=== PATIENT | female | born 1965 | race Caucasian/White ===

== ENCOUNTER 2020-05-18 09:29 | Outpatient (REF) | payer OTHER, SELFPAY ==
[2020-05-18 10:03] LABS: MANUAL DIFF FLAG NO
[2020-05-18 10:10] LABS: Basophils Absolute Auto 0.1 X10*3/uL (0.0-0.2); Basophils Percent Auto 1.1 % (0-2); Eosinophils Absolute Auto 0.1 X10*3/uL (0.0-0.4); Eosinophils Percent Auto 1.9 % (0-4); Hematocrit 45.2 % (37-47); Hemoglobin 14.2 g/dl (12.0-16.0); Imm Gran Abs Auto 0.01 X10*3/uL (0.00-0.03); Imm Gran Pct Auto 0.2 % (0.0-0.4); Lymphocytes Absolute Auto 1.5 X10*3/uL (1.2-4.9); Lymphocytes Percent Auto 23.6 % (20-40); Mean Corpuscular HGB Conc 31.4 g/dl (31.0-35.0); Mean Corpuscular Hemoglobin 29.2 pg (27.0-33.0); Mean Corpuscular Volume 92.8 fL (80-98); Monocytes Absolute Auto 0.3 X10*3/uL (0.1-1.2); Monocytes Percent Auto 5.1 % (2-11); Neutrophils Absolute Auto 4.4 X10*3/uL (2.0-8.3); Neutrophils Percent Auto 68.1 % (45-73); Platelet Count 326 X10*3/uL (160-400); Red Blood Count 4.87 X10*6/uL (4.20-5.50); Red Cell Distribution Width 12.6 % (11.0-16.0); White Blood Count 6.5 X10*3/uL (4.8-10.8)
[2020-05-18 10:38] LABS: Alanine Aminotransferase 16 U/L (0-31); Albumin Level 4.1 g/dL (3.5-5.0); Alkaline Phosphatase 99 U/L (39-117); Anion Gap 12 (12-20); Aspartate Amino Transferase 13 U/L (5-31); Bilirubin Total 0.3 mg/dL (0.0-1.0); Blood Urea Nitrogen 10 mg/dL (9-16); Calcium 9.3 mg/dL (8.4-10.2); Carbon Dioxide 29 mmol/L (22-29); Chloride 103 mmol/L (96-108); Cholesterol 218 mg/dL; Estimated Glomerular Filt Rate > 60; Glucose Fasting 97 mg/dL (60-99); HDL Cholesterol 62 mg/dL; LDL Cholesterol Calculated 125 mg/dl; Potassium 4.6 mmol/l (3.3-5.1); Sodium 139 mmol/L (135-145); Triglycerides 156 mg/dL
[2020-05-18 10:44] LABS: Glucose Urine UA NEG (NEG); Leukocyte Esterase Urine 2+ (NEG); Nitrite Urine NEG (NEG); Urine Blood NEG (NEG); Urine Ketones NEG (NEG); Urine Protein NEG (NEG-TRACE)
[2020-05-18 10:48] LABS: Appearance Urine CLEAR; Color Urine YELLOW
[2020-05-18 11:00] LABS: Thyroid Stimulating Hormone 2.87 uIU/mL (0.32-4.0); Vitamin D 25-OH Total 39.8 ng/mL (>30)
[2020-05-18 11:26] LABS: Amorphous Sediment Urine 1+ /LPF; Bacteria Urine 1+ /LPF; RBC Urine 0-2 /HPF (0); Squamous Epithelial Cell Urine 1+ /LPF
== END 2020-05-18 09:30 | disposition home or self-care (01) ==
LOC: HO.LAB 09:29
PROVIDERS: PCP Internal Medicine; Visit Provider Internal Medicine
DX: Z00.00 Encounter for general adult medical examination without abnormal findings (principal); E04.1 Nontoxic single thyroid nodule; E55.9 Vitamin D deficiency, unspecified; R31.1 Benign essential microscopic hematuria; R81 Glycosuria
CPT/HCPCS: 36415; 80053; 80061; 81001; 82306; 84443; 85025

== ENCOUNTER 2020-06-01 09:57 | Outpatient (REF) | payer OTHER, SELFPAY ==
--- NOTE | 2020-06-01 10:01 | US_ITS ---
EXAMINATION: US THYROID CLINICAL INFORMATION: Followup thyroid nodules. COMPARISON: Ultrasound thyroid 05/20/2019 TECHNIQUE: Linear transducer grayscale and color Doppler examination with attention to the region of the thyroid. FINDINGS: SIZE: Measurements of the thyroid lobes and nodules are given in sagittal, anteroposterior and transverse dimensions respectively. Right Thyroid Lobe: 5.2 x 2.1 x 2.3 cm, volume 13.1 mL. Previous: 5.1 x 2.0 x 2.3, volume 12.3 mL. Parenchyma: The gland echotexture is homogeneous. Thyroid vascularity is increased. Left Thyroid Lobe: 4.1 x 1.1 x 1.4 cm, volume 3.6 mL. Previous: 4.8 x 1.0 x 1.4, volume 3.5 mL. Parenchyma: The gland echotexture is homogeneous. Thyroid vascularity is normal. Isthmus: 0.3 cm in maximum AP dimension. Previous: 0.3 cm. Estimated total number of nodules greater than or equal to 1 cm: 1. Salon Coordinator nodules are described as follows: 1. Location: Right upper lobe. Size: 3.2 x 1.9 x 2.0 cm, volume 6.4 mL. Previous: 3.1 x 1.6 x 1.9 cm. Nodule characteristics: Composition: Solid (2). Echogenicity: Hypoechoic (2). Shape: Wider. Margins: Smooth (0). Echogenic Foci: None (0). ACR TI-RADS total points: 4 ACR TI-RADS category: 4 This nodule has been biopsied on 06/02/2019. 2. Location: Left lower pole. Size: 0.5 x 0.3 x 0.5 cm, volume 0.04 mL. Previous: 0.5 x 0.3 x 0.5 cm. Nodule characteristics: Composition: Solid (2). Echogenicity: Hypoechoic (2). Shape: Wider. Margins: Smooth (0). Echogenic Foci: None (0). ACR TI-RADS total points: 4 ACR TI-RADS category: 4 This appears to be a simple cyst. No additional nodules seen. NODES: No lymphadenopathy is seen in the tissue surrounding the thyroid gland. US/US thyroid IMPRESSION: Right midpole nodule is stable and has been biopsied previously in 2009. Small simple cyst lower pole left kidney. ACR TI-RADS RECOMMENDATIONS: Ultrasound-guided fine-needle aspiration, followup ultrasound, no further followup. * TR1 (0 point) and TR 2 (2 points): No FNA or followup. * TR3 (3 points): FNA if more than or equal to 2.5 cm in maximum dimension, followup in 1, 3 and 5 years if 1.5 to 2.4 cm in maximum dimension. * TR 4 (4-6 points): FNA if more than or equal to 1.5 cm in maximum dimension, followup in 1, 2, 3 and 5 years if 1 to 1.4 cm in maximum dimension. * TR 5 (more than or equal to 7 points): FNA if more than or equal to 1 cm in maximum dimension, followup every year for 5 years if 0.5 to 0.9 cm in maximum dimension. TR3, TR4 or TR5 nodules that are below the size threshold for followup receive no followup.
== END 2020-06-01 09:58 | disposition home or self-care (01) ==
LOC: HO.US 09:57
PROVIDERS: Visit Provider Internal Medicine
DX: E04.1 Nontoxic single thyroid nodule (principal)
CPT/HCPCS: 76536

== ENCOUNTER 2020-12-20 13:10 | Outpatient (REF) | payer OTHER, SELFPAY ==
[2020-12-20 13:53] LABS: Alanine Aminotransferase 17 U/L (0-31); Albumin Level 4.1 g/dL (3.5-5.0); Alkaline Phosphatase 101 U/L (39-117); Anion Gap 12 (12-20); Aspartate Amino Transferase 14 U/L (5-31); Bilirubin Total 0.5 mg/dL (0.0-1.0); Blood Urea Nitrogen 16 mg/dL (9-16); Calcium 9.6 mg/dL (8.4-10.2); Carbon Dioxide 28 mmol/L (22-29); Chloride 103 mmol/L (96-108); Estimated Glomerular Filt Rate > 60; Glucose Random 96 mg/dL (60-115); Sodium 138 mmol/L (135-145); Total Protein 7.3 g/dL (6.5-8.0)
[2020-12-20 14:16] LABS: Thyroid Stimulating Hormone 2.12 uIU/mL (0.32-4.0)
== END 2020-12-20 13:11 | disposition home or self-care (01) ==
LOC: HO.LNP 13:10
PROVIDERS: Visit Provider Internal Medicine
DX: R63.5 Abnormal weight gain (principal)
CPT/HCPCS: 80053; 84443

== ENCOUNTER 2021-01-12 08:23 | Outpatient (REF) | payer OTHER, SELFPAY ==
--- NOTE | ~2021-01-12 | US_ITS ---
EXAMINATION: US ABDOMEN COMPLETE CLINICAL INFORMATION: Abdominal protuberance. COMPARISON: CT abdomen and pelvis 04/28/2007. TECHNIQUE: Real-time imaging of the abdominal viscera. FINDINGS: PANCREAS: Normal. ABDOMINAL AORTA: The proximal, mid, and distal segments are normal in caliber. INFERIOR VENA CAVA: Visualized portions are normal. LIVER: There are multiple liver cysts. Some cysts appear complex with septations and mobile echogenic debris. Largest cysts measure 7.1 x 6.8 x 9 cm in the left lobe and 8.8 x 5.7 x 7.4 cm in the right lobe. Liver cysts appear increased in size and number compared to previous CT scan from 2006. The liver is normal in size. The liver contour is normal. Liver echotexture is slightly increased probably representing fatty infiltration. There is no intrahepatic biliary duct dilatation seen. GALLBLADDER: The gallbladder is physiologically distended. Multiple mobile gallstones are present. No evidence of gallbladder wall thickening or pericholecystic fluid. COMMON BILE DUCT: Normal in caliber measuring 0.4 cm in diameter. RIGHT KIDNEY: Normal No hydronephrosis. No renal calculi or focal parenchymal lesions. The kidney measures 11.5 cm in maximum dimension. LEFT KIDNEY: Normal No hydronephrosis. No renal calculi or focal parenchymal lesions. The kidney measures 11.2 cm in maximum dimension. SPLEEN: Normal. The spleen measures 9.1 cm in maximum dimension. FREE FLUID: None. US/US abdomen complete IMPRESSION: Multiple liver cysts. Some cysts appear complex. Largest cyst measures 7 x 7 x 9 cm in the left lobe and 9 x 6 x 7 cm in the right lobe. Cysts are new or increased from March [address] scan. Slightly echogenic liver probably representing fatty infiltration. Gallstones.
== END 2021-01-12 08:24 | disposition home or self-care (01) ==
LOC: HO.HMGCX 08:23
PROVIDERS: PCP Internal Medicine; Visit Provider Internal Medicine
DX: R18.8 Other ascites (principal)
CPT/HCPCS: 76700

== ENCOUNTER 2021-05-30 10:23 | Outpatient (REF) | payer OTHER, SELFPAY ==
[2021-05-30 10:27] LABS: MANUAL DIFF FLAG NO
[2021-05-30 10:39] LABS: Basophils Absolute Auto 0.1 X10*3/uL (0.0-0.2); Basophils Percent Auto 0.8 % (0-2); Eosinophils Absolute Auto 0.1 X10*3/uL (0.0-0.4); Eosinophils Percent Auto 1.7 % (0-4); Hematocrit 43.9 % (37.0-47.0); Hemoglobin 13.7 g/dl (12.0-16.0); Imm Gran Abs Auto 0.02 X10*3/uL (0.00-0.03); Imm Gran Pct Auto 0.2 % (0.0-0.4); Lymphocytes Absolute Auto 2.3 X10*3/uL (1.2-4.9); Lymphocytes Percent Auto 27.2 % (20-40); Mean Corpuscular HGB Conc 31.2 g/dl (31.0-35.0); Mean Corpuscular Hemoglobin 29.2 pg (27.0-33.0); Mean Corpuscular Volume 93.6 fL (80.0-98.0); Mean Platelet Volume 10.4 fL (9.4-12.3); Monocytes Absolute Auto 0.6 X10*3/uL (0.1-1.2); Monocytes Percent Auto 6.9 % (2-11); Neutrophils Absolute Auto 5.3 x10*3/uL (2.0-8.3); Neutrophils Percent Auto 63.2 % (45-73); Platelet Count 330 X10*3/uL (160-400); Red Blood Count 4.69 X10*6/uL (4.20-5.50); Red Cell Distribution Width 13.1 % (11.0-16.0); White Blood Count 8.3 X10*3/uL (4.8-10.8)
[2021-05-30 10:45] LABS: Appearance Urine HAZY; Color Urine YELLOW; Glucose Urine UA NEG (NEG); Leukocyte Esterase Urine NEG (NEG); Nitrite Urine NEG (NEG); PH 5.5 (5.0-8.0); Specific Gravity - Urine >= 1.030 (1.005-1.025); Urine Blood NEG (NEG); Urine Ketones NEG (NEG); Urine Protein NEG (NEG-TRACE)
[2021-05-30 11:07] LABS: Alanine Aminotransferase 14 U/L (0-31); Albumin Level 3.8 g/dL (3.5-5.0); Alkaline Phosphatase 101 U/L (39-117); Anion Gap 10 (12-20); Aspartate Amino Transferase 14 U/L (5-31); Bilirubin Total 0.3 mg/dL (0.0-1.0); Blood Urea Nitrogen 16 mg/dL (9-16); Calcium 9.2 mg/dL (8.4-10.2); Carbon Dioxide 27 mmol/L (22-29); Chloride 106 mmol/L (96-108); Cholesterol 229 mg/dL; Estimated Glomerular Filt Rate > 60; Glucose Fasting 98 mg/dL (60-99); HDL Cholesterol 61 mg/dL; LDL Cholesterol Calculated 144 mg/dl; Potassium 4.4 mmol/L (3.3-5.1); Sodium 139 mmol/L (135-145); TSH reflex Free T4 3.62 uIU/mL (0.32-4.0); Triglycerides 124 mg/dL; Vitamin D 25-OH Total 37.2 ng/mL (>30)
== END 2021-05-30 10:24 | disposition home or self-care (01) ==
LOC: HO.LNP 10:23
PROVIDERS: PCP Internal Medicine; Visit Provider Internal Medicine
DX: Z00.00 Encounter for general adult medical examination without abnormal findings (principal); E55.9 Vitamin D deficiency, unspecified; E04.1 Nontoxic single thyroid nodule; K76.89 Other specified diseases of liver
CPT/HCPCS: 80053; 80061; 81003; 82306; 84443; 85025

== ENCOUNTER 2021-06-21 08:15 | Outpatient (REF) | payer OTHER, SELFPAY ==
--- NOTE | ~2021-06-21 | US_ITS ---
EXAMINATION: US THYROID CLINICAL INFORMATION: Thyroid nodule. COMPARISON: Thyroid ultrasound 06/01/2020 and 05/20/2019. Ultrasound-guided thyroid biopsy 06/02/2019. TECHNIQUE: Linear transducer grayscale and color Doppler examination with attention to the region of the thyroid. FINDINGS: SIZE: Measurements of the thyroid lobes and nodules are given in sagittal, anteroposterior and transverse dimensions respectively. Right Thyroid Lobe: 5.5 x 2.1 x 2.5 cm, volume 15.1 mL. Previously 5.2 x 2.1 x 2.3 cm, volume 13.1 mL. Parenchyma: The gland echotexture is homogeneous. Thyroid vascularity is increased. Left Thyroid Lobe: 5.1 x 1.2 x 1.6 cm, volume 5.1 mL. Previously 4.5 x 1.1 x 1.4 cm, volume 3.6 mL. Parenchyma: The gland echotexture is homogeneous. Thyroid vascularity is increased. Isthmus: 0.3 cm in maximum AP dimension. Previously 0.3 cm. Estimated total number of nodules greater than or equal to 1 cm: 1. Orderlies Teacher nodules are described as follows: 1. Location: Right mid pole. Size: 3.3 x 2.1 x 2.5 cm, volume 9.41 mL. Previously: 3.2 x 1.9 x 2.0 cm, volume 6.36 mL. Nodule characteristics: Composition: Solid (2). Echogenicity: Hypoechoic (2). Shape: Not taller than wide (0). Margins: Lobulated (2). Echogenic Foci: None (0). ACR TI-RADS total points: 6 Previous: 4 ACR TI-RADS category: 4 Previous: 4 Significant change in size (>/= 20% in 2 dimensions and minimal increase of 2 mm or 50% or greater increase in volume): Change in features: Change in ACR TI-RADS risk category: 2. Location: Left low/medial. Size: 0.7 x 0.4 x 0.5 cm, volume 0.07 mL. Previously: 0.5 x 0.3 x 0.5 cm, volume 0.04 mL. Nodule characteristics: Composition: Solid (2). Echogenicity: Hypoechoic (2). Shape: Not taller than wide (0). Margins: Smooth (0). Echogenic Foci: None (0). ACR TI-RADS total points: 4 Previous: 4 ACR TI-RADS category: 4 Previous: 4 Significant change in size (>/= 20% in 2 dimensions and minimal increase of 2 mm or 50% or greater increase in volume): Change in features: Change in ACR TI-RADS risk category: NODES: There is a newly appreciated bilateral cervical lymph nodes. There is a single right zone 2 cervical lymph node that measures 2.1 x 0.6 x 2 cm in dimension. This has a slitlike hilum, cortical thickening and no preserved hilar flow. There are 4 left cervical lymph nodes. The largest are in zone 2. Largest lymph node measures 1.4 x 0.4 x 1.3 cm. This demonstrates borderline cortical thickening and are preserved hilar flow. US/US thyroid IMPRESSION: Enlarged right lobe. Slightly hypervascular thyroid gland. Slight interval increase in size in the dominant nodule in the right middle lobe. Repeat fine-needle aspiration should be considered. Newly appreciated bilateral cervical lymph nodes. ACR TI-RADS RECOMMENDATION REFERENCE: Ultrasound-guided fine-needle aspiration, followup ultrasound, no further follow up. * TR1 (0 point) and TR 2 (2 points): No FNA or follow up * TR3 (3 points): FNA if more than or equal to 2.5 cm in maximum dimension, followup ultrasound in 1, 3 and 5 years if 1.5 to 2.4 cm in maximum dimension. * TR4 (4-6 points): FNA if more than or equal to 1.5 cm in maximum dimension, followup ultrasound in 1, 2, 3 and 5 years if 1 to 1.4 cm in maximum dimension. * TR5 (more than or equal to 7 points): FNA if more than or equal to 1 cm in maximum dimension, followup ultrasound every year for 5 years if 0.5 to 0.9 cm in maximum dimension. * TR3, TR4 or TR5 nodules that are below the size threshold for follow up receive no follow up.
== END 2021-06-21 08:16 | disposition home or self-care (01) ==
LOC: HO.HMGCX 08:15
PROVIDERS: PCP Internal Medicine; Visit Provider Internal Medicine
DX: E04.1 Nontoxic single thyroid nodule (principal)
CPT/HCPCS: 76536

== ENCOUNTER 2021-07-20 08:52 | Outpatient (REF) | payer OTHER, SELFPAY ==
--- NOTE | ~2021-07-20 | US_ITS ---
EXAMINATION: US-GUIDED FINE-NEEDLE ASPIRATION CLINICAL INFORMATION: Increasing size of right thyroid nodule. COMPARISON: Previous thyroid ultrasounds most recent May 2021 TECHNIQUE: Procedure and risks and benefits including bleeding and infection were discussed with the patient and informed consent was obtained. The right neck was prepped and draped in the usual sterile fashion. The skin and soft tissues were anesthetized with 1% lidocaine plain. Using ultrasound guidance and a 25-gauge needle, access to the right thyroid nodule was obtained. Four 22-gauge FNA specimens were obtained. The nodule is hypervascular and specimens were bloody. FINDINGS: There is a 3.1 x 2 x 2.1 cm hypervascular right thyroid nodule that was targeted for fine-needle aspiration. US/US guided fine needle asp IMPRESSION: Right thyroid nodule fine-needle aspiration.
[2021-07-20] MEDS: Lidocaine HCl 1 % MPF 5 ML VIAL SUBCUT (10:18)
== END 2021-07-20 08:53 | disposition home or self-care (01) ==
LOC: HO.US 08:52
PROVIDERS: Visit Provider Internal Medicine
DX: E04.1 Nontoxic single thyroid nodule (principal)
CPT/HCPCS: 10005; 88172; 88173; 88177; 88305

== ENCOUNTER 2022-03-13 15:43 | Outpatient (REF) | payer OTHER, SELFPAY ==
--- NOTE | ~2022-03-13 | XR_ITS ---
EXAMINATION: XR CHEST CLINICAL INFORMATION: Bronchitis. COMPARISON: None TECHNIQUE: 2 views of the chest were obtained. FINDINGS: No significant abnormality is noted involving the heart, lungs, mediastinum, bony thorax or soft tissues. XR/XR chest 2V IMPRESSION: Unremarkable chest examination.
== END 2022-03-13 15:44 | disposition home or self-care (01) ==
LOC: HO.HMGCX 15:43
PROVIDERS: PCP Internal Medicine; Visit Provider Internal Medicine
DX: J40 Bronchitis, not specified as acute or chronic (principal)
CPT/HCPCS: 71046

== ENCOUNTER 2022-06-01 10:24 | Outpatient (REF) | payer OTHER, SELFPAY ==
[2022-06-01 10:28] LABS: MANUAL DIFF FLAG NO
[2022-06-01 10:54] LABS: Appearance Urine Clear; Color Urine Yellow; Glucose Urine UA Negative (Negative); Leukocyte Esterase Urine Trace (Negative); Nitrite Urine Negative (Negative); PH 5.5 (5.0-9.0); Specific Gravity - Urine 1.015 (1.005-1.025); UMIC TRIGGER UACC YES; Urine Blood Negative (Negative); Urine Ketones Negative (Negative); Urine Protein Negative (Neg-Trace)
[2022-06-01 11:02] LABS: Bacteria Urine None Seen (None Seen); Hyaline Casts Urine 0-2 /LPF (0-2); RBC Urine 0-2 /HPF (0-2); Squamous Epithelial Cell Urine 0-2 /HPF (0-2); WBC Urine 0-5 /HPF (0-5)
[2022-06-01 11:04] LABS: Basophils Absolute Auto 0.1 X10*3/uL (0.0-0.2); Eosinophils Absolute Auto 0.1 X10*3/uL (0.0-0.4); Eosinophils Percent Auto 1.6 % (0-4); Hematocrit 44.7 % (37.0-47.0); Hemoglobin 14.2 g/dl (12.0-16.0); Imm Gran Abs Auto 0.02 X10*3/uL (0.00-0.03); Imm Gran Pct Auto 0.3 % (0.0-0.4); Lymphocytes Percent Auto 26.7 % (20-40); Mean Corpuscular HGB Conc 31.8 g/dl (31.0-35.0); Mean Corpuscular Hemoglobin 29.7 pg (27.0-33.0); Mean Corpuscular Volume 93.5 fL (80.0-98.0); Mean Platelet Volume 10.3 fL (9.4-12.3); Monocytes Absolute Auto 0.5 X10*3/uL (0.1-1.2); Monocytes Percent Auto 6.8 % (2-11); Neutrophils Absolute Auto 4.7 x10*3/uL (2.0-8.3); Neutrophils Percent Auto 63.6 % (45-73); Platelet Count 347 X10*3/uL (160-400); Red Blood Count 4.78 X10*6/uL (4.20-5.50); White Blood Count 7.3 X10*3/uL (4.8-10.8)
[2022-06-01 11:12] LABS: Alanine Aminotransferase 20 U/L (0-31); Albumin Level 3.9 g/dL (3.5-5.0); Alkaline Phosphatase 103 U/L (39-117); Anion Gap 11 (12-20); Aspartate Amino Transferase 16 U/L (5-31); Bilirubin Total 0.7 mg/dL (0.0-1.0); Blood Urea Nitrogen 14 mg/dL (9-16); Calcium 9.7 mg/dL (8.4-10.2); Carbon Dioxide 30 mmol/L (22-29); Chloride 104 mmol/L (96-108); Cholesterol 243 mg/dL; Estimated Glomerular Filt Rate > 60; Glucose Fasting 94 mg/dL (60-99); HDL Cholesterol 58 mg/dL; LDL Cholesterol Calculated 163 mg/dl; Potassium 4.8 mmol/L (3.3-5.1); Sodium 140 mmol/L (135-145); Total Protein 6.8 g/dL (6.5-8.0); Triglycerides 113 mg/dL
[2022-06-01 11:28] LABS: TSH reflex Free T4 2.96 uIU/mL (0.32-4.0); Vitamin D 25-OH Total 39.3 ng/mL (>30)
== END 2022-06-01 10:25 | disposition home or self-care (01) ==
LOC: HO.LNP 10:24
PROVIDERS: Visit Provider Internal Medicine
DX: Z00.00 Encounter for general adult medical examination without abnormal findings (principal); E55.9 Vitamin D deficiency, unspecified; R31.1 Benign essential microscopic hematuria; E04.1 Nontoxic single thyroid nodule
CPT/HCPCS: 80053; 80061; 81001; 82306; 84443; 85025

== ENCOUNTER 2022-11-17 12:27 | Emergency (ER) | payer OTHER, SELFPAY ==
--- NOTE | ~2022-11-17 | CT_ITS ---
EXAMINATION: CT ABDOMEN AND PELVIS WITH CONTRAST CLINICAL INFORMATION: Left lower abdominal pain. COMPARISON: CT abdomen/pelvis 06/13/2022. TECHNIQUE: Multidetector volumetric images were obtained from the superior aspect of the liver through the pubic symphysis following administration 90 mL of Omnipaque 350 intravenous contrast. Sagittal and coronal reformatted images were obtained on the technologist's workstation. Oral contrast: No This CT examination was performed using dose optimization techniques as appropriate, variously including the following: *Automated exposure control *Adjustment of mA and/or kV according to patient size (this includes techniques or standardized protocols for targeted exams where dose is matched to indication/reason for exam; i.e. extremities or head) *Use of iterative reconstruction technique DLP: 743 mGy-cm FINDINGS: LUNG BASES: No focal consolidation or pleural effusion. LIVER, GALLBLADDER, AND BILIARY TREE: The liver is normal in size, shape and attenuation. There is redemonstration of liver cysts and hemangiomas, not significantly changed compared to 06/13/2022. No new focal liver observation. Calcified gallbladder calculi layering dependently without significant pericholecystic fat stranding or free fluid to suspected acute cholecystitis. No biliary ductal dilatation. PANCREAS: No peripancreatic free fluid or fat stranding. The main pancreatic duct is nondilated. SPLEEN: Unremarkable. ADRENAL GLANDS: Unremarkable. KIDNEYS AND URETERS: Symmetric nephrograms. No hydronephrosis. No perinephric fat stranding. Redemonstration of a few too small to characterize cortical hypodensities, statistically favoring to represent simple cysts and for which no imaging follow-up is recommended. BLADDER: Unremarkable. GASTROINTESTINAL TRACT: The stomach and the small bowel are nondilated. Normal appendix. Colonic diverticulosis with wall thickening and pericolonic inflammatory changes centered around the sigmoid colon. No evidence of pneumoperitoneum or organized extraluminal collection. ABDOMINAL WALL: No significant hernia is appreciated. LYMPH NODES: No lymphadenopathy. VASCULAR: Scattered atherosclerotic disease. Abdominal aorta is normal in caliber. PELVIC VISCERA: Normal CT appearance of the uterus and adnexa. OSSEOUS STRUCTURES: No acute or aggressive appearing osseous abnormalities. Degenerative changes of the spine. CT/CT abdomen pelvis w IV con IMPRESSION: Findings are most suggestive of acute sigmoid diverticulitis. No evidence of free air or organized extraluminal collection. Correlation with an outpatient colonoscopy is recommended when clinically appropriate to ensure the absence of underlying lesions. Cholelithiasis without CT evidence to suggest acute cholecystitis.
[2022-11-17 13:01] VITALS: BP 145/85; PULSE 75; RESP 18; TEMP 36.1; O2SAT 98; BMI 27.6
--- NOTE | 2022-11-17 13:01 | ED_ITS ---
HPI - General Adult General Chief complaint: Abdominal Pain Stated complaint: stomach/back pain Time Seen by Provider: 11/17/22 19:10 Source: patient, RN notes reviewed and old records reviewed Mode of arrival: ambulatory Limitations: no limitations History of Present Illness HPI narrative: 57-year-old female past medical history significant for IBS presents for evaluation of lower abdominal pain Patient reports her pain started about 4 days ago. She states that has been worsening since then. Her pain radiates to her left flank and left lower abdomen. Vomiting, diarrhea, constipation. Denies any urinary complaints. Her pain is worse with movement and standing She reports a history of cyst removal Patient reports that at rest her pain is mild and 4/10 Related Data Previous Rx's Medication Instructions Recorded amoxicillin 875 mg-potassium 1 tab PO TID #21 tabs 11/17/22 clavulanate 125 mg tablet Allergies Allergy/AdvReac Type Severity Reaction Status Date / Time No Known Allergies Allergy Unverified 01/15/20 16:28 [No Known Allergies*] Review of Systems Constitutional: Constitutional: Denies chills and Denies fever(s) Cardiovascular: Cardiovascular: Denies chest pain and Denies dyspnea Respiratory: Respiratory: Denies cough and Denies dyspnea Gastrointestinal: Gastrointestinal: Reports abdominal pain, Denies constip ation, Denies diarrhea, Denies nausea and Denies vomiting Genitourinary: Genitourinary: Denies dysuria Musculoskeletal: Musculoskeletal: Denies back pain Integumentary/Breasts: Skin/Breast: Denies erythema and Denies rash PMFSH Social History Social History Alcohol intake: current Alcohol intake frequency: a few times a week Alcohol type: wine Smoked in Last 30 Days: No Use of substances other than those prescribed or required for medical reasons: No Advance Directives: No Advance Directives Information Provided: Yes Physical Exam ED Vital Signs: Vital Signs - 24 hr 11/17/22 13:01 11/17/22 18:16 11/17/22 18:22 Temperature 97.0 F 99.1 F Pulse Rate 75 73 Respiratory Rate 18 16 Blood Pressure 145/85 H 157/89 H Pulse Oximetry 98 99 Oxygen Delivery Method Room Air Room Air 11/17/22 21:24 Temperature 98.2 F Pulse Rate 71 Respiratory Rate 16 Blood Pressure 163/84 H Pulse Oximetry 98 Oxygen Delivery Method Room Air BMI result Body Mass Index 27.6 Const General: healthy appearing, comfortable, no acute distress, alert and awake Nutritional Appearance: well nourished Orientation/consciousness: patient oriented x3 HENMT Head: Yes normocephalic and Yes atraumatic Throat: Yes posterior oropharynx normal Eyes Eyelids: Yes eyelids normal Conjunctivae: conjunctivae normal Sclerae: sclerae normal Corneas: corneas normal Pupils: Equal, round and reactive pupils present EOM: EOMs intact bilaterally Neck Neck: Yes full ROM Resp Effort & Inspection: normal respiratory effort, able to speak in complete sentences, no audible wheezes and not labored Auscultation: clear to auscultation bilaterally Cardio Rate: regular rate Rhythm: regular rhythm GI Inspection: No distended Palpation (GI): Soft to palpation, not firm, Tenderness to palpation present (GI) in the LLQ, suprapubicly and with rebound tenderness; not in the RLQ and not in the LUQ, Guarding due to palpation present (GI) and not rigid Auscultation: normoactive bowel sounds Skin General skin exam: no rashes or lesions noted and elasticity normal Neuro General: patient oriented x3 Cranial nerves: Yes Equal, round and reactive pupils present and Yes Bilaterally intact EOM present Cognition (Neuro): normal cognition Extrem Other: Moving all extremities well without any obvious deformities Course Course Course Narrative: RME performed by Katherine Shelton PA-C. Patient is a 57 year old assigned female at presenting to the emergency department with abdominal pain. Labs ordered. Patient placed back in the waiting room pending room availability and results. Reevaluation(s) Reevaluation #1: Findings consistent with acute sigmoid diverticulitis which explains the patient's pain. No evidence of complication including free air or abscess formation. This was all discussed with the patient. She will be discharged on Augmentin. It is Time: 22:20 Medications Administered Discontinued Medications Generic Name Dose Route Start Last Admin Trade Name Freq PRN Reason Stop Dose Admin Iohexol 90 ml 11/17/22 21:18 11/17/22 21:19 Iohexol 350 Mg/Ml 100 Ml Infus..Btl IV 11/17/22 21:19 90 ml ONCE ONE Administration Medical Decision Making Medical Decision Making MDM Narrative: 57-year-old female presents for evaluation of lower abdominal pain. Her symptoms have been going on for last 4 or 5 days. She denies any GI or symptoms. She is quite tender on exam guarding and rebound tenderness. Given her significant discomfort will get a CT scan of the abdomen pelvis Differential Diagnosis Differential Diagnoses: The differential diagnosis associated with the presentation includes Obstructive uropathy IBS Diverticulitis Colitis Abdominal pain Muscle strain Admission/Observation Consideration of admission/observation: Escalation of care including admission/observation considered Patient has acute sigmoid diverticulitis but no evidence of sepsis or surgical emergency related to complication Lab Data MDM Lab Attestation statement: I reviewed the patient's lab results. Leukocytosis to 13.5 K, no significant anemia, platelets 299. Electrolytes w ithin normal limits, renal function within normal limits 11/17/22 13:18 11/17/22 13:18 Labs: Lab Results 11/17/22 11/17/22 11/17/22 Range/Units 13:18 13:18 13:18 WBC 13.5 H (4.8-10.8) X10*3/uL RBC 4.54 (4.20-5.50) X10*6/uL Hgb 13.3 (12.0-16.0) g/dl Hct 42.0 (37.0-47.0) % MCV 92.5 (80.0-98.0) fL MCH 29.3 (27.0-33.0) pg MCHC 31.7 (31.0-35.0) g/dl RDW 13.1 (11.0-16.0) % Plt Count 299 (160-400) X10*3/uL MPV 9.6 (9.4-12.3) fL Immature Gran % (Auto) 0.4 (0.0-0.4) % Neut % (Auto) 73.4 H (45-73) % Lymph % (Auto) 17.3 L (20-40) % [place] % (Auto) 7.6 (2-11) % Eos % (Auto) 0.7 (0-4) % Baso % (Auto) 0.6 (0-2) % Lymph # (Auto) 2.3 (1.2-4.9) X10*3/uL [place] # (Auto) 1.0 (0.1-1.2) X10*3/uL Eos # (Auto) 0.1 (0.0-0.4) X10*3/uL Baso # (Auto) 0.1 (0.0-0.2) X10*3/uL Abs Immat Gran (auto) 0.06 H (0.00-0.03) X10*3/uL Absolute Neuts (auto) 9.9 H (2.0-8.3) x10*3/uL Absolute Nucleated RBC 0.000 (0.0-0.012) X10*3/uL Nucleated RBC % (auto) 0.0 (0.0-0.2) /100WBC Sodium 137 (135-145) mmol/L Potassium 3.6 D (3.3-5.1) mmol/L Chloride 103 (96-108) mmol/L Carbon Dioxide 26 (22-29) mmol/L Anion Gap 12 (12-20) BUN 11 (9-16) mg/dL Creatinine 0.91 (0.5-1.4) mg/dL Estim Creat Clear Calc 75.7 Estimated GFR > 60 Random Glucose 103 (60-115) mg/dL Calcium 9.5 (8.4-10.2) mg/dL Magnesium 2.2 (1.6-2.6) mg/dL Total Bilirubin 0.8 (0.0-1.0) mg/dL AST 21 (5-31) U/L ALT 31 (0-31) U/L Alkaline Phosphatase 104 (39-117) U/L Total Protein 7.4 (6.5-8.0) g/dL Albumin 3.9 (3.5-5.0) g/dL Urine Color Yellow Urine Appearance Hazy Urine pH 6.0 (5.0-9.0) Ur Specific [place] 1.025 (1.005-1.025) Urine Protein Negative (Neg-Trace) mg/dL Urine Glucose (UA) Negative (Negative) mg/dL Urine Ketones Negative (Negative) mg/dL Urine Blood Trace (Negative) Urine Nitrite Negative (Negative) Ur Leukocyte Esterase Trace H (Negative) Urine RBC 0-2 (0-2) /HPF Urine WBC 11-20 H (0-5) /HPF Ur Squamous Epith Cells 11-20 (0-2) /HPF Urine Bacteria 1+ (None Seen) Hyaline Casts 0-2 (0-2) /LPF Radiology Impression Discussion of test interpretation with radiology: I have reviewed the radiologist's reading. (Acute uncomplicated sigmoid diverticulitis) Discharge Plan Discharge Clinical Impression: Diverticulitis Patient Disposition: Home, Self-Care Instructions: Diverticulitis (ED) Additional Instructions: CT scan shows acute sigmoid diverticulitis. This is a bacterial infection of a pouch in your colon Take the Augmentin 3 times daily for the next 7 days You should also take probiotics with this Return for new or worsening symptoms, especially if you develope severe, worsening pain, fever Prescriptions: New amoxicillin-pot clavulanate 875-125 mg tablet 1 tab PO TID Qty: 21 0RF
[2022-11-17 13:43] LABS: Appearance Urine Hazy; Color Urine Yellow; Glucose Urine UA Negative (Negative); Leukocyte Esterase Urine Trace (Negative); Nitrite Urine Negative (Negative); Specific Gravity - Urine 1.025 (1.005-1.025); UMIC TRIGGER UACC YES; Urine Blood Trace (Negative); Urine Ketones Negative (Negative); Urine Protein Negative (Neg-Trace)
[2022-11-17 13:44] LABS: Basophils Absolute Auto 0.1 X10*3/uL (0.0-0.2); Basophils Percent Auto 0.6 % (0-2); Eosinophils Absolute Auto 0.1 X10*3/uL (0.0-0.4); Eosinophils Percent Auto 0.7 % (0-4); Hemoglobin 13.3 g/dl (12.0-16.0); Imm Gran Abs Auto 0.06 X10*3/uL (0.00-0.03); Imm Gran Pct Auto 0.4 % (0.0-0.4); Lymphocytes Absolute Auto 2.3 X10*3/uL (1.2-4.9); Lymphocytes Percent Auto 17.3 % (20-40); MANUAL DIFF FLAG NO; Mean Corpuscular HGB Conc 31.7 g/dl (31.0-35.0); Mean Corpuscular Hemoglobin 29.3 pg (27.0-33.0); Mean Corpuscular Volume 92.5 fL (80.0-98.0); Mean Platelet Volume 9.6 fL (9.4-12.3); Monocytes Percent Auto 7.6 % (2-11); Neutrophils Absolute Auto 9.9 x10*3/uL (2.0-8.3); Neutrophils Percent Auto 73.4 % (45-73); Platelet Count 299 X10*3/uL (160-400); Red Blood Count 4.54 X10*6/uL (4.20-5.50); Red Cell Distribution Width 13.1 % (11.0-16.0); White Blood Count 13.5 X10*3/uL (4.8-10.8)
[2022-11-17 13:52] LABS: Bacteria Urine 1+ (None Seen); Hyaline Casts Urine 0-2 /LPF (0-2); RBC Urine 0-2 /HPF (0-2); UACC Culture Trigger YES
[2022-11-17 14:01] LABS: Alanine Aminotransferase 31 U/L (0-31); Albumin Level 3.9 g/dL (3.5-5.0); Alkaline Phosphatase 104 U/L (39-117); Anion Gap 12 (12-20); Aspartate Amino Transferase 21 U/L (5-31); Bilirubin Total 0.8 mg/dL (0.0-1.0); Blood Urea Nitrogen 11 mg/dL (9-16); Calcium 9.5 mg/dL (8.4-10.2); Carbon Dioxide 26 mmol/L (22-29); Chloride 103 mmol/L (96-108); Creatinine Clr Calc Pharmacy 75.7; Estimated Glomerular Filt Rate > 60; Glucose Random 103 mg/dL (60-115); Magnesium 2.2 mg/dL (1.6-2.6); Potassium 3.6 mmol/L (3.3-5.1); Sodium 137 mmol/L (135-145); Total Protein 7.4 g/dL (6.5-8.0)
[2022-11-17 18:16] VITALS: PULSE 73; RESP 16; TEMP 37.3; O2SAT 99
[2022-11-17 18:22] VITALS: BP 157/89
--- NOTE | 2022-11-17 18:26 | PC.NURSE ---
pt axox4, VSS, respirations even and unlabored, skin wpd, +bs x 4. c/o LLQ abd. pain x 5 days; denies n/v/d; last bm today; distended abd. tenderness on L. side upon palpation. pt states hx diverticulitis, gallstones and liver cysts. pt states pain gets worse with movement. awaiting primary eval, pt denies having questions at this time. call trevizo within reach.
--- NOTE | 2022-11-17 21:13 | PC.NURSE ---
pt went to ct-scan her left ac saline well infiltrated, ice applied
[2022-11-17] MEDS: iohexoL 350 MG/ML 100 ML INFUS..BTL 90 ML IV (21:19)
[2022-11-17 21:24] VITALS: BP 163/84; PULSE 71; RESP 16; TEMP 36.8; O2SAT 98
[2022-11-17] MEDS: Amoxicillin/Potassium Clav 875 MG TABLET PO (22:38)
== END 2022-11-17 22:39 | disposition home or self-care (01) ==
PROVIDERS: Physician Assistant Medical; Emergency Provider Emergency Medicine; PCP Internal Medicine
DX: K57.32 Diverticulitis of large intestine without perforation or abscess without bleeding (principal); R10.30 Lower abdominal pain, unspecified
CPT/HCPCS: 36415; 74177; 80053; 81001; 83735; 85025; 87086; 99284; Q9967

== ENCOUNTER 2022-11-23 13:57 | Outpatient (REF) | payer OTHER, SELFPAY ==
[2022-11-23 14:26] LABS: Appearance Urine Turbid; Glucose Urine UA Negative (Negative); Leukocyte Esterase Urine Negative (Negative); Nitrite Urine Negative (Negative); Urine Blood Negative (Negative); Urine Ketones Trace mg/dL (Negative); Urine Protein Negative (Neg-Trace)
[2022-11-23 14:31] LABS: Color Urine Yellow
[2022-11-23 14:41] LABS: Bacteria Urine None Seen (None Seen); Hyaline Casts Urine 0-2 /LPF (0-2); WBC Urine 0-5 /HPF (0-5)
== END 2022-11-23 13:58 | disposition home or self-care (01) ==
LOC: HO.LNP 13:57
PROVIDERS: Visit Provider Internal Medicine
DX: R31.9 Hematuria, unspecified (principal)
CPT/HCPCS: 81001

== ENCOUNTER 2022-12-25 07:45 | Outpatient (REF) | payer OTHER, SELFPAY ==
[2022-12-25 11:20] LABS: Appearance Urine Clear; Color Urine Yellow; Glucose Urine UA Negative (Negative); Leukocyte Esterase Urine Trace (Negative); Nitrite Urine Negative (Negative); PH 5.5 (5.0-9.0); UMIC TRIGGER UACC YES; Urine Blood Negative (Negative); Urine Ketones Negative (Negative); Urine Protein Negative (Neg-Trace)
[2022-12-25 11:26] LABS: Bacteria Urine None Seen (None Seen); Hyaline Casts Urine 0-2 /LPF (0-2); RBC Urine 0-2 /HPF (0-2); Squamous Epithelial Cell Urine 0-2 /HPF (0-2); WBC Urine 0-5 /HPF (0-5)
== END 2022-12-25 07:46 | disposition home or self-care (01) ==
LOC: HO.LNP 07:45
PROVIDERS: Visit Provider Internal Medicine
DX: R31.9 Hematuria, unspecified (principal)
CPT/HCPCS: 81001

== ENCOUNTER 2023-06-05 10:58 | Outpatient (REF) | payer OTHER, SELFPAY ==
[2023-06-05 11:03] LABS: MANUAL DIFF FLAG NO
[2023-06-05 11:30] LABS: Basophils Absolute Auto 0.1 X10*3/uL (0.0-0.2); Basophils Percent Auto 0.9 % (0-2); Eosinophils Absolute Auto 0.2 X10*3/uL (0.0-0.4); Hematocrit 43.4 % (37.0-47.0); Hemoglobin 14.1 g/dl (12.0-16.0); Imm Gran Abs Auto 0.03 X10*3/uL (0.00-0.03); Imm Gran Pct Auto 0.4 % (0.0-0.4); Lymphocytes Absolute Auto 2.1 X10*3/uL (1.2-4.9); Mean Corpuscular HGB Conc 32.5 g/dl (31.0-35.0); Mean Corpuscular Hemoglobin 29.8 pg (27.0-33.0); Mean Corpuscular Volume 91.8 fL (80.0-98.0); Mean Platelet Volume 10.1 fL (9.4-12.3); Monocytes Absolute Auto 0.4 X10*3/uL (0.1-1.2); Monocytes Percent Auto 5.4 % (2-11); Neutrophils Absolute Auto 4.8 x10*3/uL (2.0-8.3); Neutrophils Percent Auto 63.3 % (45-73); Platelet Count 323 X10*3/uL (160-400); Red Blood Count 4.73 X10*6/uL (4.20-5.50); Red Cell Distribution Width 13.1 % (11.0-16.0); White Blood Count 7.6 X10*3/uL (4.8-10.8)
[2023-06-05 11:55] LABS: Alanine Aminotransferase 18 U/L (0-31); Albumin Level 3.8 g/dL (3.5-5.0); Alkaline Phosphatase 92 U/L (39-117); Anion Gap 14 (12-20); Aspartate Amino Transferase 15 U/L (5-31); Bilirubin Total 0.5 mg/dL (0.0-1.0); Blood Urea Nitrogen 15 mg/dL (9-16); Calcium 9.4 mg/dL (8.4-10.2); Carbon Dioxide 26 mmol/L (22-29); Chloride 102 mmol/L (96-108); Cholesterol 224 mg/dL (<200); Estimated Glomerular Filt Rate > 60; Glucose Fasting 93 mg/dL (60-99); HDL Cholesterol 62 mg/dL (>40); LDL Cholesterol Calculated 129 mg/dL (<100); Potassium 4.1 mmol/L (3.3-5.1); Sodium 138 mmol/L (135-145); Total Protein 7.1 g/dL (6.5-8.0); Triglycerides 166 mg/dL (<150)
[2023-06-05 12:13] LABS: Appearance Urine Hazy; Color Urine Yellow; Glucose Urine UA Negative (Negative); Leukocyte Esterase Urine Small (1+) (Negative); Nitrite Urine Negative (Negative); PH 5.5 (5.0-9.0); Specific Gravity - Urine 1.025 (1.005-1.025); UMIC TRIGGER UACC YES; Urine Blood Negative (Negative); Urine Ketones Negative (Negative); Urine Protein Negative (Neg-Trace)
[2023-06-05 12:28] LABS: Bacteria Urine Trace (None Seen); Hyaline Casts Urine 0-2 /LPF (0-2); RBC Urine 0-2 /HPF (0-2); UACC Culture Trigger YES; WBC Urine 21-50 /HPF (0-5)
[2023-06-05 13:22] LABS: TSH reflex Free T4 3.19 uIU/mL (0.32-4.0); Vitamin D 25-OH Total 60.6 ng/mL (>30)
== END 2023-06-05 10:59 | disposition home or self-care (01) ==
LOC: HO.LNP 10:58
PROVIDERS: Visit Provider Internal Medicine
DX: Z00.00 Encounter for general adult medical examination without abnormal findings (principal); E55.9 Vitamin D deficiency, unspecified
CPT/HCPCS: 80053; 80061; 81001; 82306; 84443; 85025; 87086

== ENCOUNTER 2023-06-27 08:21 | Outpatient (REF) | payer OTHER, SELFPAY ==
--- NOTE | ~2023-06-27 | US_ITS ---
EXAMINATION: US THYROID CLINICAL INFORMATION: Thyroid nodule. COMPARISON: Ultrasound-guided thyroid biopsy dated 07/20/2021. Ultrasound soft tissue head/neck thyroid dated 06/21/2021. TECHNIQUE: Linear transducer grayscale and color Doppler examination with attention to the region of the thyroid. FINDINGS: SIZE: Measurements of the thyroid lobes and nodules are given in sagittal, anteroposterior and transverse dimensions respectively. Right Thyroid Lobe: 5.4 x 2.1 x 2.8 cm, volume 16.6 mL. Previously 5.5 x 2.1 x 2.5 cm, volume 15.1 mL. Parenchyma: The gland echotexture is homogeneous. Thyroid vascularity is increased. Left Thyroid Lobe: 5.3 x 1.2 x 1.8 cm, volume 6.0 mL. Previously 5.1 x 1.2 x 1.6 cm, volume 5.1 mL. Parenchyma: The gland echotexture is homogeneous. Thyroid vascularity is increased. Isthmus: 0.3 cm in maximum AP dimension. Previously 0.3 cm. Estimated total number of nodules greater than or equal to 1 cm: 1. Electrician Elevator Maintenance nodules are described as follows: 1. Location: Right mid. Size: 3.6 x 2.0 x 3.1 cm, volume 11.5 mL. Previously: 3.3 x 2.1 x 2.5 cm, volume 9.41 mL. Nodule characteristics: Composition: Solid (2). Echogenicity: Hypoechoic (2). Shape: Not taller than wide (0). Margins: Lobulated (2). Echogenic Foci: None (0). ACR TI-RADS total points: 6 Previous: 6 ACR TI-RADS category: 4 Previous: 4 Significant change in size (>/= 20% in 2 dimensions and minimal increase of 2 mm or 50% or greater increase in volume): No Change in features: No Change in ACR TI-RADS risk category: No 2. Location: Left inferior medial. Size: 0.8 x 0.5 x 0.6 cm, volume 0.11 mL. Previously: 0.7 x 0.4 x 0.5 cm, volume 0.07 mL. Nodule characteristics: Composition: Solid/almost completely solid (2). Echogenicity: Hypoechoic (2). Shape: Not taller than wide (0). Margins: Smooth (0). Echogenic Foci: None (0). ACR TI-RADS total points: 4 Previous: 4 ACR TI-RADS category: 4 Previous: 4 Significant change in size (>/= 20% in 2 dimensions and minimal increase of 2 mm or 50% or greater increase in volume): No Change in features: No Change in ACR TI-RADS risk category: No NODES: A right cervical level II, a 2.2 x 0.5 x 1.2 cm reniform lymph node is seen. This shows normal architectural features. This lymph node has diminished mildly from measurements of 2.1 x 0.6 x 2.0 cm on the ultrasound examination of 06/21/2021. At left cervical level IV, a 1.2 x 0.4 x 0.5 cm reniform lymph node is seen. At left cervical level VII, a 0.7 x 0.4 x 0.6 cm reniform lymph node is seen. These show normal architectural features. US/US thyroid IMPRESSION: 1. There is an asymmetric goiter, left lobe greater than right. 2. There is increased thyroid vascularity, which can be associated with thyroiditis. 3. There are continued stable thyroid nodules, as detailed. Please correlate with the right thyroid nodule biopsy dated 07/20/2021, with benign pathology findings. Recommend continued thyroid ultrasound surveillance. 4. There is a nonspecific, mildly enlarged right cervical lymph node, which should be managed on a clinical basis. This lymph node has mildly diminished from prior. ACR TI-RADS RECOMMENDATION REFERENCE: Ultrasound-guided fine-needle aspiration, follow up ultrasound, no further followup. * TR1 (0 point) and TR2 (2 points): No FNA or followup * TR3 (3 points): FNA if more than or equal to 2.5 cm in maximum dimension, follow up ultrasound in 1, 3 and 5 years if 1.5 to 2.4 cm in maximum dimension. * TR4 (4-6 points): FNA if more than or equal to 1.5 cm in maximum dimension, follow up ultrasound in 1, 2, 3 and 5 years if 1 to 1.4 cm in maximum dimension. * TR5 (more than or equal to 7 points): FNA if more than or equal to 1 cm in maximum dimension, follow up ultrasound every year for 5 years if 0.5 to 0.9 cm in maximum dimension. * TR3, TR4 or TR5 nodules that are below the size threshold for follow up receive no followup.
== END 2023-06-27 08:22 | disposition home or self-care (01) ==
LOC: HO.HMGCX 08:21
PROVIDERS: PCP Internal Medicine; Visit Provider Internal Medicine
DX: E04.1 Nontoxic single thyroid nodule (principal)
CPT/HCPCS: 76536

== ENCOUNTER 2024-06-13 07:30 | Outpatient (REF) | payer OTHER, SELFPAY ==
[2024-06-13 10:48] LABS: MANUAL DIFF FLAG NO
[2024-06-13 11:03] LABS: Appearance Urine Clear; Color Urine Yellow; Glucose Urine UA Negative (Negative); Leukocyte Esterase Urine Small (1+) (Negative); Nitrite Urine Negative (Negative); PH 5.5 (5.0-9.0); UMIC TRIGGER UACC YES; Urine Blood Negative (Negative); Urine Ketones Negative (Negative); Urine Protein Negative (Neg-Trace)
[2024-06-13 11:09] LABS: Basophils Absolute Auto 0.1 X10*3/uL (0.0-0.2); Eosinophils Absolute Auto 0.2 X10*3/uL (0.0-0.4); Eosinophils Percent Auto 2.2 % (0-4); Hematocrit 44.2 % (37.0-47.0); Imm Gran Abs Auto 0.02 X10*3/uL (0.00-0.03); Imm Gran Pct Auto 0.3 % (0.0-0.4); Lymphocytes Percent Auto 28.9 % (20-40); Mean Corpuscular HGB Conc 31.7 g/dl (31.0-35.0); Mean Corpuscular Hemoglobin 29.2 pg (27.0-33.0); Mean Corpuscular Volume 92.3 fL (80.0-98.0); Mean Platelet Volume 10.3 fL (9.4-12.3); Monocytes Absolute Auto 0.5 X10*3/uL (0.1-1.2); Neutrophils Absolute Auto 4.1 x10*3/uL (2.0-8.3); Neutrophils Percent Auto 60.6 % (45-73); Platelet Count 312 X10*3/uL (160-400); Red Blood Count 4.79 X10*6/uL (4.20-5.50); Red Cell Distribution Width 12.7 % (11.0-16.0); White Blood Count 6.8 X10*3/uL (4.8-10.8)
[2024-06-13 11:13] LABS: Bacteria Urine None Seen (None Seen); Hyaline Casts Urine 0-2 /LPF (0-2); RBC Urine 0-2 /HPF (0-2); Squamous Epithelial Cell Urine 0-2 /HPF (0-2); UACC Culture Trigger YES; WBC Urine 0-5 /HPF (0-5)
[2024-06-13 11:31] LABS: Alanine Aminotransferase 25 U/L (0-31); Albumin Level 3.8 g/dL (3.5-5.0); Alkaline Phosphatase 90 U/L (39-117); Anion Gap 14 (12-20); Aspartate Amino Transferase 25 U/L (5-31); Bilirubin Total 0.8 mg/dL (0.0-1.0); Blood Urea Nitrogen 14 mg/dL (9-16); Calcium 9.5 mg/dL (8.4-10.2); Carbon Dioxide 24 mmol/L (22-29); Chloride 102 mmol/L (96-108); Cholesterol 221 mg/dL (<200); Estimated Glomerular Filt Rate > 60; Glucose Fasting 87 mg/dL (60-99); HDL Cholesterol 56 mg/dL (>40); LDL Cholesterol Calculated 137 mg/dL (<100); Sodium 136 mmol/L (135-145); Total Protein 7.2 g/dL (6.5-8.0); Triglycerides 144 mg/dL (<150)
--- OUTSIDE RECORDS SUMMARY | 2024-06-13 11:33 | XMS_ITS ---
Author Organization [facility] Address [address] [place] [id number] Care Team Providers Care Automobile Lights Assembler Name Role Phone Leon Junior MD Primary Care Provider Ric Boland Jr Unavailable REASON FOR VISIT cancelled appt Encounters Encounter Location Date Provider Diagnosis [facility] [address] [place] [address] 03/12/2023 Ric Saleem Jr PLAN OF TREATMENT No Information
--- OUTSIDE RECORDS SUMMARY | 2024-06-13 11:33 | XMS_ITS ---
Author Organization Leon Junior MD Address [address] [place] [address] [address] [place] [phone] Care Team Providers Care Continuous Vulcanizing Machine Operator Name Role Phone Leon Junior Primary Care Provider REASON FOR VISIT Thyroid US due Encounters Encounter Location Date Provider Diagnosis Leon Junior MD [address] [place] [address] [place] [phone] 07/10/2023 Leon Junior Thyroid nodule E04.1 Assessments Encounter Date Diagnosis (ICD Code) Assessment Notes Treatment Notes Treatment Clinical Notes Section Notes 07/10/2023 Thyroid nodule (ICD-10 - E04.1) order madeand put into the future order folder for . Plan Of Treatment Treatment Notes Assessment Notes Thyroid nodule order madeand put in to the future order folder for . Pending Test Test Name Order Date US thyroid 07/10/2023 Next Appt Details Provider Name:Leon Hodge ier, 06/19/2024 08:00:00 AM, [address] [place] [address], Suite [facility], [place], [place], [phone], Progress Notes * Christine MARTINEZDOB:1965 (57 yo F)Acc No.[id number]:07/10/2023 Patient:?Juan Christine :1965???Age:57 Y???Sex:Female Address:[address] [place] [address] , [place], [address] Subjective: * Chief Complaints: * ???Thyroid US due * Medical History:? * Surgical History:? * Hospitalization/Major Diagno stic Procedure:? * Medications:? Objective: Assessment: * Assessment: 1.?Thyroid nodule - E04.1? Plan: * Treatment: Notes: order madeand put into the future order folder for .?? * Procedure Codes:? * true * Date:? Generated for Katerina arnold/Jose/Anabelaitting on:?06/13/2024 11:32 AM EST
--- OUTSIDE RECORDS SUMMARY | 2024-06-13 11:33 | XMS_ITS ---
Author Organization Leon Junior MD Address [address] [place], [place] [phone] Care Team Providers Care Jacquard Fixer Name Role Phone Leon Junior Primary Care Provider [phone] Results Component Value Reference Range Notes Complete Blood Count Auto Di ff (Not yet reviewed by provider) Interpretation: Performing Lab:[facility], [address] [facility], [place] [address] Notes/Report: White Blood Count 6.8 4.8-10.8 X10*3/uL Red Blood Count 4.79 4.20-5.50 X10*6/uL Hemoglobin 14.0 12.0-16.0 g/dl Hematocrit 44.2 37.0-47.0 % Mean Corpuscular Volume 92.3 80.0-98.0 fL Mean Corpuscular Hemoglobin 29.2 27.0-33.0 pg Mean Corpuscular HGB Conc 31.7 31.0-35.0 g/dl Red Cell Distribution Width 12.7 11.0-16.0 % Platelet Count 312 160-400 X10*3/uL Mean Platelet Volume 10.3 9.4-12.3 fL Neutrophils Percent Auto 60.6 45-73 % Imm Gran Pct Auto 0.3 0.0-0.4 % Lymphocytes Percent Auto 28.9 20-40 % Monocytes Percent Auto 7.0 2-11 % Eosinophils Percent Auto 2.2 0-4 % Basophils Percent Auto 1.0 0-2 % NRBC Pct Auto 0.0 0.0-0.2 /100WBC Neutrophils Absolute Auto 4.1 2.0-8.3 x10*3/u L Imm Gran Abs Auto 0.02 0.00-0.03 X10*3/uL Lymphocytes Absolute Auto 2.0 1.2-4.9 X10*3/u L Monocytes Absolute Auto 0.5 0.1-1.2 X10*3/uL Eosinophils Absolute Auto 0.2 0.0-0.4 X10*3/u L Basophils Absolute Auto 0.1 0.0-0.2 X10*3/uL NRBC Abs Auto 0.000 0.0-0.012 X10*3/uL UA ClnCatch+Micro w/rflx Cul t (Not yet reviewed by provider) Interpretation: Performing Lab:[facility], [address] [place] [id number] Notes/Report: [id number] Urine, Clean Catch Color Urine Yellow Appearance Urine Clear PH 5.5 5.0-9.0 Glucose Urine UA Negative Negative mg/dL Urine Blood Negative Negative Specific Dennison - Urine 1.020 1.005-1.025 Urine Protein Negative Neg-Trace mg/dL Urine Ketones Negative Negative mg/dL Nitrite Urine Negative Negative Leukocyte Esterase Urine Small (1+) Negative RBC Urine 0-2 0-2 /HPF WBC Urine 0-5 0-5 /HPF Squamous Epithelial Cell Urine 0-2 0-2 /HPF Bacteria Urine None Seen None Seen Hyaline Casts Urine 0-2 0-2 /LPF REASON FOR VISIT fasting yearly labs Encounters Encounter Location Date Provider Diagnosis Leon Junior MD [address] [place] [address] [address] [place], [place] [phone] 06/13/2024 Leon Junior Blood tests for routine general physical examination Z00.00 ; Vitamin D deficiency E55.9 and Nodule of right lobe of thyroid gland E04.1 Assessments Encounter Date Diagnosis (ICD Code) Assessment Notes Treatment Notes Treatment Clinical Notes Section Notes 06/13/2024 Blood tests for routine general physical examination (ICD-10 - Z00.00) 06/13/2024 Vitamin D deficiency (ICD-10 - E55.9) 06/13/2024 Nodule of right lobe of thyroid gland (ICD-10 - E04.1) Plan Of Treatment Pending Test Test Name Order Date TSH (THYROID STIMULATING HORMONE) 2024 Complete Blood Count Auto Diff Comprehensive Trail. Panel Fast Lipid Panel 06/13/2024 Vitamin D 25-OH Total 06/13/2024 UA ClnCatch+Micro w/rflx Cult 06/13/2024 Next Appt Details Provider Name:Leon hernandez, 06/19/2024 08:00:00 AM, [address] [facility], [address], [place], [place], [phone], Progress Notes * Christine MARTINEZDOB:1965 (58 yo F)Acc No.[id number]:06/13/2024 Progress Note Patient:?Christine MARTINEZ Provider:?Leon Junior MD :1965???Age:58 Y???Sex:Female D ate:06/13/2024 Address:[address] [place], [place] [phone] Subjective: * Chief Complaints: * ???1. Fasting yearly labs. * Medical History:? Objective: * Vitals:? Assessment: * Assessment: 1.?Blood tests for routine g eneral physical examination - Z00.00 (Primary)???2.?Vitamin D deficiency - E55.9???3.?Nodule of right lobe of thyroid gland - E04.1??? Plan: * Treatment: 2.?Vitamin D deficiency?LAB: TSH (THYROID STIMULATING HORMONE) ?LAB: Complete Blood Count Auto Diff (Collection Date & Time - 06/13/2024 07:30 AM) ?LAB: Comprehensive Trail. Panel Fast ?LAB: Lipid Panel ?LAB: Vitamin D 25-OH Total ?LAB: UA ClnCatch+Micro w/rflx Cult (Collection Date & Time - 06/13/2024 07:30 AM) 3.?Nodule of right lobe of t hyroid gland?LAB: TSH (THYROID STIMULATING HORMONE) * Procedure Codes:?06406 VENIP UNCT, ROUTINE* * * The named appointment provid er may or may not be the originator of this progress note, and it is not deemed complete until electronically signed by the appointment provider. Sign off status: Pending * Provider:?Leon Junior MD Date:?0 06/13/2024 Generated for Katerina arnold/Jose/Radha on:?06/13/2024 11:33 AM EST
--- OUTSIDE RECORDS SUMMARY | 2024-06-13 11:33 | XMS_ITS | Patient Health Record ---
Author Organization [facility] Address [address] [place] [address] Care Team Providers Care Sheet Rock Applicator Name Role Phone Leon Junior MD Primary Care Provider Ric Boland Jr Unavailable [phone] REASON FOR REFERRAL No Information SOCIAL HISTORY Sex Assigned At : Social History Observation Description Sex Assigned At Unknown PLAN OF TREATMENT No Information Insurance Providers Payer Name Payer Address Payer Phone Subscriber Number Group Number Insured Name Patient Relationship to Insured Coverage Start Date Coverage End Date [facility] [address] [facility] [place] [id number] [place] Self [place] patient is the insured
--- OUTSIDE RECORDS SUMMARY | 2024-06-13 11:33 | XMS_ITS | Patient Health Record ---
Author Organization Leon Junior MD Address [address] [place], [place] [id number] Care Team Providers Care Environmental Engineer Name Role Phone Leon Junior Primary Care Provider Allergies No Known Allergies Results Component Value Reference Range Notes Complete Blood Count Auto Di ff (Not yet reviewed by provider) Interpretation: Performing Lab:[facility], [address] [place] [address] Notes/Report: White Blood Count 6.8 4.8-10.8 X10*3/uL [...] (Not yet reviewed by provider) Interpretation: Performing Lab:[facility], [address] [place] [phone] Notes/Report: [id number] Urine, Clean Catch Color Urine Yellow Appearance Urine Clear PH 5.5 5.0-9.0 Glucose Urine UA Negative Negative mg/dL Urine Blood Negative Negative Specific [place] - Urine 1.020 1.005-1.025 Urine Protein Negative Neg-Trace mg/dL Urine Ketones Negative Negative mg/dL Nitrite Urine Negative Negative Leukocyte Esterase Urine Small (1+) Negative RBC Urine 0-2 0-2 /HPF WBC Urine 0-5 0-5 /HPF Squamous Epithelial Cell Urine 0-2 0-2 /HPF Bacteria Urine None Seen None Seen Hyaline Casts Urine 0-2 0-2 /LPF US thyroid Reviewed date:07/10/2023 02:59:16 PM Interpretation: Performing Lab: Notes/Report: [facility] [address] [place] [address] [place] [address] Ultrasound Report Signed Patient: Christine Martinez MR#: [id number] 9 : 1965 Acct:[id number] Age/Sex: 57 / F ADM Date: 06/27/23 Loc: HO.HMGCX Attending Dr: Leon Junior MD Ordering Physician: Leon Junior MD Date of Service: 06/27/23 Procedure(s): US thyroid Accession Number(s): [id number] cc: Leon Junior MD EXAMINATION: US THYROID CLINICAL INFORMATION: Thyroid nodule. COMPARISON: Ultrasound-guided thyroid biopsy dated 07/20/2021. Ultrasound soft tissue head/neck thyroid dated 06/21/2021. TECHNIQUE: Linear transducer grayscale and color Doppler examination with attention to the region of the thyroid. FINDINGS: SIZE: Measurements of the thyroid lobes and nodules are given in sagittal, anteroposterior and transverse dimensions respectively. Right Thyroid Lobe: 5.4 x 2.1 x 2.8 cm, volume 16.6 mL. Previously 5.5 x 2.1 x 2.5 cm, volume 15.1 mL. Parenchyma: The gland echotexture is homogeneous. Thyroid vascularity is increased. Left Thyroid Lobe: 5.3 x 1.2 x 1.8 cm, volume 6.0 mL. Previously 5.1 x 1.2 x 1.6 cm, volume 5.1 mL. Parenchyma: The gland echotexture is homogeneous. Thyroid vascularity is increased. Isthmus: 0.3 cm in maximum AP dimension. Previously 0.3 cm. Estimated total number of nodules greater than or equal to 1 cm: 1. Semiconductor Assembler nodules are described as follows: 1. Location: Right mid. Size: 3.6 x 2.0 x 3.1 cm, volume 11.5 mL. Previously: 3.3 x 2.1 x 2.5 cm, volume 9.41 mL. Nodule characteristics: Composition: Solid (2). Echogenicity: Hypoechoic (2). Shape: Not taller than wide (0). Margins: Lobulated (2). Echogenic Foci: None (0). ACR TI-RADS total points: 6 Previous: 6 ACR TI-RADS category: 4 Previous: 4 Significant change in size (>/= 20% in 2 dimensions and minimal increase of 2 mm or 50% or greater increase in volume): No Change in features: No Change in ACR TI-RADS risk category: No 2. Location: Left inferior medial. Size: 0.8 x 0.5 x 0.6 cm, volume 0.11 mL. Previously: 0.7 x 0.4 x 0.5 cm, volume 0.07 mL. Nodule characteristics: Composition: Solid/almost completely solid (2). Echogenicity: Hypoechoic (2). Shape: Not taller than wide (0). Margins: Smooth (0). Echogenic Foci: None (0). ACR TI-RADS total points: 4 Previous: 4 ACR TI-RADS category: 4 Previous: 4 Significant change in size (>/= 20% in 2 dimensions and minimal increase of 2 mm or 50% or greater increase in volume): No Change in features: No Change in ACR TI-RADS risk category: No NODES: A right cervical level II, a 2.2 x 0.5 x 1.2 cm reniform lymph node is seen. This shows normal architectural features. This lymph node has diminished mildly from measurements of 2.1 x 0.6 x 2.0 cm on the ultrasound examination of 06/21/2021. At left cervical level IV, a 1.2 x 0.4 x 0.5 cm reniform lymph node is seen. At left cervical level VII, a 0.7 x 0.4 x 0.6 cm reniform lymph node is seen. These show normal architectural features. US/US thyroid IMPRESSION: 1. There is an asymmetric goiter, left lobe greater than right. 2. There is increased thyroid vascularity, which can be associated with thyroiditis. 3. There are continued stable thyroid nodules, as detailed. Please correlate with the right thyroid nodule biopsy dated 07/20/2021, with benign pathology findings. Recommend continued thyroid ultrasound surveillance. 4. There is a nonspecific, mildly enlarged right cervical lymph node, which should be managed on a clinical basis. This lymph node has mildly diminished from prior. ACR TI-RADS RECOMMENDATION REFERENCE: Ultrasound-guided fine-needle aspiration, follow up ultrasound, no further followup. * TR1 (0 point) and TR2 (2 points): No FNA or followup * TR3 (3 points): FNA if more than or equal to 2.5 cm in maximum dimension, follow up ultrasound in 1, 3 and 5 years if 1.5 to 2.4 cm in maximum dimension. * TR4 (4-6 points): FNA if more than or equal to 1.5 cm in maximum dimension, follow up ultrasound in 1, 2, 3 and 5 years if 1 to 1.4 cm in maximum dimension. * TR5 (more than or equal to 7 points): FNA if more than or equal to 1 cm in maximum dimension, follow up ultrasound every year for 5 years if 0.5 to 0.9 cm in maximum dimension. * TR3, TR4 or TR5 nodules that are below the size threshold for follow up receive no followup. Dictated By: Luis Miguel Davison MD Signed By: <Electronically signed by Luis Miguel Davison MD in OV> 06/28/23 2253 DD/ 0846 TD/TT: Supervisor [employer] Production: [facility] [address] [place] [address] [place] [address] Ultrasound Report Signed Patient: Emir Martinez MR#: [id number] 9 : 1965 Acct:[id number] Age/Sex: 57 / F ADM Date: 06/27/23 [facility]: Leon Junior MD Ordering Physician: Leon Junior MD Date of Service: 06/27/23 Procedure(s): US thyroid Accession Number(s): [id number] cc: Leon Junior MD EXAMINATION: US THYROID CLINICAL INFORMATION: Thyroid nodule. COMPARISON: Ultrasound-guided th yroid biopsy dated 07/20/2021. Ultrasound soft tissue head/neck thy roid dated 06/21/2021. TECHNIQUE: Linear transducer grayscale and color Doppler examination with attention to the reg ion of the thyroid. FINDINGS: SIZE: Measurements o f the thyroid lobes and nodules are given in sagittal, anteropost erior and transverse dimensions respectively. Right Thyroid Lobe: 5.4 x 2.1 x 2.8 cm, volume 16.6 mL. Previously 5.5 x 2.1 x 2.5 cm, volu me 15.1 mL. Parenchyma: The glan d echotexture is homogeneous. Thyroid vascularity is increased. Left Thyroid Lobe: 5 .3 x 1.2 x 1.8 cm, volume 6.0 mL. Previously 5.1 x 1.2 x 1.6 cm, volume 5.1 mL. Parenchyma: The glan d echotexture is homogeneous. Thyroid vascularity is increased. Isthmus: 0.3 cm in maximum AP dimension. Previously 0.3 cm. Estimated total numb er of nodules greater than or equal to 1 cm: 1. Semiconductor Assembler nodul es are described as follows: 1. Location: Right mid. Size: 3.6 x 2.0 x 3. 1 cm, volume 11.5 mL. Previously: 3.3 x 2. 1 x 2.5 cm, volume 9.41 mL. Nodule characteristics: Composition: Solid (2). Echogenicity: Hypoec hoic (2). Shape: Not taller th an wide (0). Margins: Lobulated (2). Echogenic Foci: None (0). ACR TI-RADS total po ints: 6 Previous: 6 ACR TI-RADS category : 4 Previous: 4 Significant change i n size (>/= 20% in 2 dimensions and minimal increase of 2 mm or 50% or greater increase in volume): No Change in features: No Change in ACR TI-RAD S risk category: No 2. Location: Left inferior medial. Size: 0.8 x 0.5 x 0. 6 cm, volume 0.11 mL. Previously: 0.7 x 0. 4 x 0.5 cm, volume 0.07 mL. Nodule characteristics: Composition: Solid/a lmost completely solid (2). Echogenicity: Hypoec hoic (2). Shape: Not taller th an wide (0). Margins: Smooth (0). Echogenic Foci: None (0). ACR TI-RADS total po ints: 4 Previous: 4 ACR TI-RADS category : 4 Previous: 4 Significant change i n size (>/= 20% in 2 dimensions and minimal increase of 2 mm or 50% or greater increase in volume): No Change in features: No Change in ACR TI-RAD S risk category: No NODES: A right cervi tory level II, a 2.2 x 0.5 x 1.2 cm reniform lymph node is seen. This s hows normal architectural features. This lymph node has diminished mildl y from measurements of 2.1 x 0.6 x 2.0 cm on the ultrasound examinati on of 06/21/2021. At left cervical lev el IV, a 1.2 x 0.4 x 0.5 cm reniform lymph node is seen. At left cervic al level VII, a 0.7 x 0.4 x 0.6 cm reniform lymph node is seen. These show normal architectural features. U S/US thyroid IMPRESSION: 1. There is an asymm etric goiter, left lobe greater than right. 2. There is increase d thyroid vascularity, which can be associated with thyroiditis. 3. There are continu ed stable thyroid nodules, as detailed. Please correlate with the [facility] thyroid nodule biopsy dated 07/20/2021, with benign pathology findings. Recommend continued thyroid ultrasound surveillance. 4. There is a nonspecific, mildly enlarged right cervical lymph node, which should be unique ged on a clinical basis. This lymph node has mildly diminished from prior. ACR TI-RADS RECOMMENDATION REFERENCE: Ultrasound-guided fine-needle aspiration, follow up ultrasound, no further followup. * TR1 (0 point) and TR2 (2 points): No FNA or followup * TR3 (3 points): FN A if more than or equal to 2.5 cm in maximum dimension, follow up ultrasound in 1, 3 and 5 years if 1.5 to 2.4 cm in maximum dimension. * TR4 (4-6 points): FNA if more than or equal to 1.5 cm in maximum dimension, follow up ultrasound in 1, 2, 3 and 5 years if 1 to 1.4 cm in maximum dimension. * TR5 (more than or equal to 7 points): FNA if more than or equal to 1 cm in maximum dimens ion, follow up ultrasound every year for 5 years if 0.5 to 0.9 cm in max imum dimension. * TR3, TR4 or TR5 no dules that are below the size threshold for follow up receive no followup. Dictated By: Karen Davison MD Signed By: <Electronically signed by Luis Miguel Davison MD in OV> 06/28/23 2253 DD/ 0846 TD/TT: Commissary Agent ist: [facility] MAMMOGRAM DIGITAL BILATERAL SCREEN Reviewed date:11/12/2023 11:10:28 AM Interpretation:Negative Performing Lab: Notes/Report: Negative Hold Gold (Not yet reviewed by provider) Interpretation: Performing Lab:[facility], [address] [place] [phone] Notes/Report: Hold Gold See Note Specimen held untested for 24 hours; Call to request Chemistry testing. Reason For Referral No Information Medications Medication SIG (Take, Route, Frequency, Duration) Notes Start Date End Date Status Paxlovid (300/100) 20 x 150 MG & 10 x 100MG 3 pills orally twice a day for 5 days 03/12/2023 Active Meclizine HCl 25 MG 1 tablet as needed Orally every 12 hrs for 7 days 02/16/2023 Not-Taking Ibuprofen 800 MG 1 tablet with food o r milk as needed Orally Three times a day for 30 days 05/06/2018 Not-Taking Ocuflox 0.3 % 1 drop into affected eye Ophthalmic Four times a day for 7 days 05/05/2019 Not-Takin g Vitamin D 2000 UNIT 1 tablet Orally Once a day Active Hyoscyamine Sulfate ER 0.375 MG 1 tablet Orally once per day for 30 day(s) 01/20/2021 Not-Taking FLUoxetine HCl 20 MG 1 capsule in the morning Orally Once a day Active Ocuflox 0.3 % 1 drop into affected eye Ophthalmic Four times a day for 7 days 2021 Not-Takin g Immunizations Vaccine Route Administration Date Status Comme nts Covid Vaccine Unknown 06/16/2020 Administered Moderna Covid Vaccine Unknown 07/14/2020 Administered Moderna SARS-COV-2 Moderna Unknown 05/03/2021 Administered SARS-COV-2 Moderna Unknown 01/20/2022 Administered Fluarix Quadrivalent Unknown 04/02/2017 Refused Fluarix Quadrivalent Unknown 04/29/2018 Refused Fluarix Quadrivalent Unknown 05/05/2019 Refused Fluarix Quadrivalent Unknown 05/24/2020 Refused Fluarix Quadrivalent Unknown 01/20/2021 Refused Social History Tobacco Use: Social History Observation Description Date Details (start date - stop date) Never Smoker NA - NA Tobacco Use/Smoking Question Answer Notes Patient is a nonsmoker Additional Findings: Tobacco Non-User Cu rrent non-smoker, currently using no form of tobacco Alcohol Screen Question Answer Notes Did you have a drink contain ing alcohol in the past year? Yes How often did you have a dri nk containing alcohol in the past year? Never (0 point) How many drinks did you have on a typical day when you were drinking in the past year? 1 or 2 drinks (0 point) How often did you have 6 or more drinks on one occasion in the past year? 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 Problem 970641962 Mild intermitten t asthma without complication (J45.20) Active confirmed Problem 17629222 Dysthymia (F34.1) Active confirmed Problem 39319595 Liver cyst (K76.89) Active confirmed Problem 114123945 Nodule of right lobe of thyroid gland (E04.1) Active confirmed Vital Signs Blood pressure diastolic 85 mm Hg 06/15/2023 Height 67.5 in 06/15/2023 Blood pressure systolic 126 mm Hg 06/15/2023 Encounters Encounter Location Date Provider Diagnosis Leon Junior MD [address] [place] [address] Drive [address] [place] [id number] 06/13/2024 Leon Junior Blood tests for routine general physical examination Z00.00 ; Vitamin D deficiency E55.9 and Nodule of right lobe of thyroid gland E04.1 Leon Junior MD [address] [place] [address] Drive [address] [place] [id number] 06/15/2023 Leon Junior Mild intermittent asthma without complication J45.20 ; Annual physical exam Z00.00 ; Thyroid nodule E04.1 ; Dysthymia F34.1 ; Vitamin D deficiency E55.9 and Depression screening Z13.31 Leon Junior MD [address] [place] [address] Drive [address] [place] [id number] 05/29/2024 Leon Junior MD [address] [place] [address] [address] [phone] 07/10/2023 Leon Junior Thyroid nodule E04.1 Assessments Encounter Date Diagnosis (ICD Code) Assessment Notes Treatment Notes Treatment Clinical Notes Section Notes 06/13/2024 Blood tests for routine general physical examination (ICD-10 - Z00.00) 06/15/2023 Mild intermittent asthma without complication (ICD-10 - J45.20) never uses inhaler 06/15/2023 Annual physical exam (ICD-10 - Z00.00) labs reviewed and discussed with patient 07/10/2023 Thyroid nodule (ICD-10 - E04.1) order madeand put into the future order folder for . 06/13/2024 Vitamin D deficiency (ICD-10 - E55.9) 06/15/2023 Thyroid nodule (ICD-10 - E04.1) had seen surgeon. but he said that she not have them out/ odrer faxed to [facility] 06/13/2024 Nodule of right lobe of thyroid gland (ICD-10 - E04.1) 06/15/2023 Dysthymia (ICD-10 - F34.1) stable, will continue current regiment 06/15/2023 Vitamin D deficiency (ICD-10 - E55.9) stable, will continue current regiment 06/15/2023 Depression screening (ICD-10 - Z13.31) negative screen Plan Of Treatment Pending Test Test Name Order Date TSH (THYROID STIMULATING HORMONE) 2024 CT ABD W&WO CONTRAST 01/20/2021 CT ABD & PELVIS WITH CONTRAST 06/08/2022 CT ABD & PELVIS WITH CONTRAST 01/21/2021 CT ABD & PELVIS WITH CONTRAST 11/30/2022 CT ABD & PELVIS WWO CONTRAST 01/21/2021 XR CHEST 2 VIEW PA & LAT 03/13/2022 BONE DENSITY DEXA 05/06/2018 US ABD 12/20/2020 US THYROID BIOPSY FNA GUIDE 07/05/2021 US THYROID BIOPSY FNA GUIDE 05/22/2019 Complete Blood Count Auto Diff 5 Comprehensive Badger. Panel Fast 5 Lipid Panel 06/13/2024 Vitamin D 25-OH Total 06/13/2024 Hold Gold 06/13/2024 US abdomen limited 06/08/2022 US thyroid 07/10/2023 US thyroid 06/15/2023 UA ClnCatch+Micro w/rflx Cult 06/13/2024 Future Test Test Name Order Date US THYROID 06/05/2020 US THYROID 07/15/2021 Next Appt Details Provider Name:Leon hernandez, 06/19/2024 08:00:00 AM, [address] [facility], [address], [place], [id number], Insurance Providers Payer Name Payer Address Payer Phone Subscriber Number Group Number Insured Name Patient Relationship to Insured Coverage Start Date Coverage End Date [facility] [address] [facility] [place] [phone] [id number] Christine Martinez Self - patient is the insured 8 Medical (General) History Medical History History ICD Code 04/09/17 - refused colonosco py and doesn''t want to be asked again; cologuard negative 06/04/18 Perimenopausal N95.1 cologard 06/21 negative
--- OUTSIDE RECORDS SUMMARY | 2024-06-13 11:33 | XMS_ITS ---
Author Organization Leon Junior MD Address [address] [place], [place] [id number] Care Team Providers Care Archivist Nonprofit Foundation Name Role Phone Leon Junior Primary Care Provider REASON FOR VISIT Thyroid US due Encounters Encounter Location Date Provider Diagnosis Leon Junior MD [address] [place], [place] [phone] 05/29/2024 Leon Junior Plan Of Treatment Next Appt Details Provider Name:Leon Hodge ier, 06/19/2024 08:00:00 AM, [address], [address], [place], [place], [phone], Progress Notes * Christine CADOB:1965 (58 yo F)Acc No.[id number]:05/29/2024 Patient:?Christine [place] :1965???Age:58 Y???Sex:Female Address:[address] [place] [address] , [place], [address] * * Date:?
--- OUTSIDE RECORDS SUMMARY | 2024-06-13 11:33 | XMS_ITS ---
Author Organization [facility] Address [address] [place] [address] Care Team Providers Care Lens Mold Setter Name Role Phone Leon Junior MD Primary Care Provider Mary Jo Saleem Jr, Ric Unavailable REASON FOR VISIT Patient presents today for a COLON SCREENING Encounters Encounter Location Date Provider Diagnosis [facility] [address] [place] [phone] 03/15/2023 Ric Saleem Jr PLAN OF TREATMENT No Information
[2024-06-13 11:39] LABS: Thyroid Stimulating Hormone 3.07 uIU/mL (0.32-4.0); Vitamin D 25-OH Total 72.8 ng/mL (>30)
== END 2024-06-13 07:31 | disposition home or self-care (01) ==
LOC: HO.LNP 07:30
PROVIDERS: Visit Provider Internal Medicine
DX: Z00.00 Encounter for general adult medical examination without abnormal findings (principal); E55.9 Vitamin D deficiency, unspecified; E04.1 Nontoxic single thyroid nodule; Z13.6 Encounter for screening for cardiovascular disorders
CPT/HCPCS: 80053; 80061; 81001; 81003; 82306; 84443; 85025; 87086

== ENCOUNTER 2024-06-17 15:54 | Outpatient (REF) | payer OTHER, SELFPAY ==
--- OUTSIDE RECORDS SUMMARY | 2024-06-17 16:35 | XMS_ITS ---
Author Organization [facility] Address [address] [place] [address] Care Team Providers Care Consulting Engineer Name Role Phone Leon Junior MD Primary Care Provider Mary Jo Saleem Jr, Ric Unavailable REASON FOR VISIT Patient presents today for a COLON SCREENING Encounters Encounter Location Date Provider Diagnosis [facility] [address] [place] [phone] 03/15/2023 Ric Saleem Jr PLAN OF TREATMENT No Information
--- OUTSIDE RECORDS SUMMARY | 2024-06-17 16:35 | XMS_ITS ---
Author Organization Leon Junior MD Address [address] [place], [place] [id number] Care Team Providers Care Oncology Patient Navigator Name Role Phone Leon Junior Primary Care Provider REASON FOR VISIT Thyroid US due Encounters Encounter Location Date Provider Diagnosis Leon Junior MD [address] [place], [place] [phone] 05/29/2024 Leon Junior Plan Of Treatment Next Appt Details Provider Name:Leon Hodge ier, 06/23/2024 02:30:00 PM, [address], [address], [place], [place], [phone], Progress Notes * Christine CADOB:1965 (58 yo F)Acc No.[id number]:05/29/2024 Patient:?Christine CA :1965???Age:58 Y???Sex:Female Address:[address] [place] [address] , [place], [address] * * Date:?
--- OUTSIDE RECORDS SUMMARY | 2024-06-17 16:35 | XMS_ITS | Patient Health Record ---
Author Organization [facility] Address [address] [place] [address] Care Team Providers Care Vegetable Farm Manager Name Role Phone Leon Junior MD Primary Care Provider Ric Boland Jr Unavailable REASON FOR REFERRAL No Information SOCIAL HISTORY Sex Assigned At : Social History Observation Description Sex Assigned At Unknown PLAN OF TREATMENT No Information Insurance Providers Payer Name Payer Address Payer Phone Subscriber Number Group Number Insured Name Patient Relationship to Insured Coverage Start Date Coverage End Date [employer] [address] [facility] [place] [phone] [id number] [place] Self - patient is the insured
--- OUTSIDE RECORDS SUMMARY | 2024-06-17 16:35 | XMS_ITS | Patient Health Record ---
Author Organization Leon Junior MD Address [address] [place], [place] [phone] Care Team Providers Care Clinical Tech Name Role Phone Leon Junior Primary Care Provider Allergies No Known Allergies Results Component Value Reference Range Notes Complete Blood Count Auto Di ff Reviewed date:06/13/2024 12:54:06 PM Interpretation: Performing Lab:[facility], [address] [place] [phone] Notes/Report: White Blood Count 6.8 4.8-10.8 X10*3/uL [...] 0.0-0.012 X10*3/uL UA ClnCatch+Micro w/rflx Cul t Reviewed date:06/13/2024 12:54:43 PM Interpretation: Performing Lab:[facility], [address] [place] [phone] Notes/Report: [id number] 0730 Urine, Clean Catch Color Urine Yellow Appearance Urine Clear PH 5.5 5.0-9.0 Glucose Urine UA Negative Negative mg/dL Urine Blood Negative Negative Specific [place] - Urine 1.020 1.005-1.025 Urine Protein Negative [...] 02:59:16 PM Interpretation: Performing Lab: Notes/Report: [facility] Primary [facility] [place] [address] Ultrasound Report Signed Patient: Christine Martinez MR#: [id number] 9 : 1965 Acct:[id number] Age/Sex: 57 / F ADM Date: 06/27/23 Loc: HO.[facility] Attending Dr: Leon Junior MD Ordering Physician: Leon Junior MD Date of Service: 06/27/23 Procedure(s): US thyroid Accession Number(s): [id number] cc: Leon Junior MD EXAMINATION: US THYROID [...] than or equal to 1 cm: 1. Diabetes Manager nodules are described as follows: 1. Location: [...] in OV> 06/28/23 2253 DD/ 0846 TD/TT: Consumer Relations Complaint Clerk: VERN MORRIS [facility] [address] [place] [address] [place] [address] Ultrasound Report Signed Patient: Emir Martinez MR#: [id number] 9 : 1965 Acct:[id number] Age/Sex: 57 / F ADM Date: 06/27/23 [facility]: Leon Junior MD Ordering Physician: Leon Junior MD Date of Service: 06/27/23 Procedure(s): US thyroid Accession Number(s): [id number] cc: Leon Junior MD EXAMINATION: US THYROID [...] than or equal to 1 cm: 1. Diabetes Manager nodul es are described as follows: 1. [...] as detailed. Please correlate with the r ight thyroid nodule biopsy dated 07/20/2021, with benign [...] in OV> 06/28/23 2253 DD/ 0846 TD/TT: Light Coil Winder ist: VERN MAMMOGRAM DIGITAL BILATERAL SCREEN Reviewed date:11/12/2023 11:10:28 AM Interpretation:Negative Performing Lab: Notes/Report: Negative Hold Gold Reviewed date:06/13/2024 12:34:26 PM Interpretation: Performing Lab:[facility], [address] [place] [phone] Notes/Report: Hold Gold See Note Specimen held untested for 24 hours; Call to request Chemistry testing. Urine Culture Reviewed date:06/15/2024 02:43:32 PM Interpretation: Performing Lab:[facility], [address] [place] [phone] Notes/Report: Urine Culture No growth. 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 Problem 343741401 Mild intermitten t asthma without complication (J45.20) Active confirmed Problem 65959376 Dysthymia (F34.1) Active confirmed Problem 56519562 Liver cyst (K76.89) Active confirmed Problem 311426076 Nodule of right lobe of thyroid gland (E04.1) Active confirmed Encounters Encounter Location Date Provider Diagnosis Leon Junior MD [address] [place] [address] Drive [address] [place] [phone] 06/13/2024 Leon Junior Blood tests for routine general physical examination Z00.00 ; Vitamin D deficiency E55.9 and Nodule of right lobe of thyroid gland E04.[address] Junior MD [address] [place] [phone] 05/29/2024 Leon Junior MD [address] [place] [address] Drive [address] [place] [phone] 07/10/2023 Leon Junior Thyroid nodule E04.1 Assessments Encounter Date Diagnosis (ICD Code) Assessment Notes Treatment Notes Treatment Clinical Notes Section Notes 06/13/2024 Blood tests for routine general physical examination (ICD-10 - Z00.00) 07/10/2023 Thyroid nodule (ICD-10 - E04.1) order [...] 07/05/2021 US THYROID BIOPSY FNA GUIDE 05/22/2019 Comprehensive [place]. Panel Fast Lipid Panel 06/13/2024 Vitamin D 25-OH Total 06/13/2024 US abdomen limited 06/08/2022 US thyroid 07/10/2023 US thyroid 06/15/2023 Future Test Test Name Order Date US THYROID 06/05/2020 US THYROID 07/15/2021 Next Appt Details Provider Name:Leon Hodge ier, 06/23/2024 02:30:00 PM, [address] [facility], [address], [place], [place], [phone], Insurance Providers Payer Name Payer Address Payer Phone Subscriber Number Group Number Insured Name Patient Relationship to Insured Coverage Start Date Coverage End Date [facility] [address] [place] [phone] [id number] Christine Martinez Self - patient is the insured 8 Medical (General) History Medical History History ICD Code 04/09/17 - refused colonosco py and doesn''t want to be asked again; cologuard negative 06/04/18 Perimenopausal N95.1 cologard 06/21 negative
--- OUTSIDE RECORDS SUMMARY | 2024-06-17 16:35 | XMS_ITS ---
Author Organization Leon Junior MD Address [address] [place], [place] [phone] Care Team Providers Care Desk Lieutenant Name Role Phone Leon Junior Primary Care Provider [phone] Results Component Value Reference Range Notes Complete Blood Count Auto Di ff Reviewed date:06/13/2024 12:54:06 PM Interpretation: Performing Lab:[facility], [address] [place] [phone] Notes/Report: White Blood Count 6.8 4.8-10.8 X10*3/uL [...] t Reviewed date:06/13/2024 12:54:43 PM Interpretation: Performing Lab:[facility], [address] [place] [phone] Notes/Report: [id number] 0730 Urine, Clean Catch Color Urine Yellow Appearance Urine Clear PH 5.5 5.0-9.0 Glucose Urine UA Negative Negative mg/dL Urine Blood Negative Negative Specific [place] - Urine 1.020 1.005-1.025 Urine Protein Negative [...] Location Date Provider Diagnosis Leon Junior MD [address] [place] [address] [address] [place], [place] [phone] 06/13/2024 Leon Junior Blood tests for routine [...] Name Order Date TSH (THYROID STIMULATING HORMONE) 02/14/ 2025 [facility] [place]. Panel Fast Lipid Panel 06/13/2024 Vitamin D 25-OH Total 06/13/2024 Next Appt Details Provider Name:Leon Hodge ier, 06/23/2024 02:30:00 PM, [address] [facility], [address], [place], [place], [phone], Progress Notes * Christine MARTINEZDOB:1965 (58 yo F)Acc No.[id number]:06/13/2024 Progress Note Patient:?Christine MARTINEZ Provider:?Leon Junior MD :1965???Age:58 Y???Sex:Female D ate:06/13/2024 Address:[address] [place], [place] [phone] Subjective: * Chief Complaints: * ???1. Fasting yearly labs. * Medical History:? Objective: * Vitals:? Assessment: * Assessment: 1.?Blood tests for routine g eneral physical examination - Z00.00 (Primary)???2.?Vitamin D deficiency - E55.9???3.?Nodule of right lobe of thyroid gland - E04.1??? Plan: * Treatment: 2.?Vitamin D deficiency?LAB: TSH (THYROID STIMULATING HORMONE) ?LAB: [facility] [place]. Panel Fast ?LAB: Lipid Panel ?LAB: Vitamin D 25-OH Total ?LAB: Complete Blood Count Auto Diff (Collection Date & Time - 06/13/2024 07:30 AM) ?LAB: ClnCatch+Micro w/rflx Cult (Collection Date & Time - 06/13/2024 07:30 AM) 3.?Nodule of right lobe of t hyroid gland?LAB: TSH (THYROID STIMULATING HORMONE) * Procedure Codes:?86073 VENIP UNCT, ROUTINE* * * The named appointment provid er may or may not be the originator of this progress note, and it is not deemed complete until electronically signed by the appointment provider. Sign off status: Pending * Provider:?Leon Junior MD Date:?0 06/13/2024 Generated for Katerina arnold/Jose/Anabelaitting on:?06/17/2024 04:35 PM EST
--- OUTSIDE RECORDS SUMMARY | 2024-06-17 16:35 | XMS_ITS ---
Author Organization Leon Junior MD Address [address] [place] [phone] Care Team Providers Care Cryptologic Linguist Name Role Phone Leon Junior Primary Care Provider REASON FOR VISIT Thyroid US due Encounters Encounter Location Date Provider Diagnosis Leon Junior MD [address] [place] [address] [place] [phone] 07/10/2023 Leon Junior Thyroid nodule E04.1 Assessments [...] Provider Name:Leon Hodge ier, 06/23/2024 02:30:00 PM, [address] [place] [address], Suite [facility], [place], [place], [phone], Progress Notes * Christine MARTINEZDOB:1965 (57 yo F)Acc No.[id number]:07/10/2023 Patient:?JuanJuventinoChristine :1965???Age:57 Y???Sex:Female Address:[address] [place] [address] , [place], [address] Subjective: * Chief Complaints: * ???Thyroid US due * Medical History:? * Surgical History:? * Hospitalization/Major Diagno stic Procedure:? * Medications:? Objective: Assessment: * Assessment: 1.?Thyroid nodule - E04.1? Plan: * Treatment: Notes: order madeand put into the future order folder for .?? * Procedure Codes:? * true * Date:? Generated for Katerina arnold/Jose/Radha on:?06/17/2024 04:34 PM EST
--- OUTSIDE RECORDS SUMMARY | 2024-06-17 16:35 | XMS_ITS ---
Author Organization [facility] Address [address] [place] [phone] Care Team Providers Care Farm Management Teacher Name Role Phone Leon Junior MD Primary Care Provider Ric Boland Jr Unavailable [phone] REASON FOR VISIT cancelled appt Encounters Encounter Location Date Provider Diagnosis [facility] [address] [place] [address] 03/12/2023 Ric Saleem Jr PLAN OF TREATMENT No Information
== END 2024-06-17 15:55 | disposition home or self-care (01) ==
LOC: HO.US 15:54
PROVIDERS: PCP Internal Medicine; Visit Provider Internal Medicine
DX: E04.1 Nontoxic single thyroid nodule (principal)
CPT/HCPCS: 76536

== ENCOUNTER → 2024-06-17 15:56 | Outpatient (BNV) | payer OTHER, SELFPAY | PROVIDERS: PCP Internal Medicine; Visit Provider Radiology Diagnostic Radiology | DX: E04.1 Nontoxic single thyroid nodule (principal) | CPT/HCPCS: 76536 ==

== ENCOUNTER 2024-08-14 08:38 | Outpatient (REF) | payer OTHER, SELFPAY ==
--- NOTE | ~2024-08-14 | US_ITS ---
EXAMINATION: US ABDOMEN LIMITED HISTORY: LIVER CYST TECHNIQUE: Real-time grayscale ultrasound imaging of the right upper quadrant was performed and images were reviewed. COMPARISON: Comparison is made with the prior examination dated 01/12/2021. FINDINGS: Liver: The right lobe of the liver measures 14.1 cm in size. The left lobe of the liver measures 12.3 cm in size. The liver demonstrates increased echotexture, consistent with steatosis. Again seen are multiple cysts, the largest of which is in the right lobe measuring 4.5 x 2.7 x 5.3 cm. No intrahepatic biliary ductal dilatation is identified. There is normal hepatopedal flow in the portal vein. Gallbladder and biliary tree: There are multiple calculi in the gallbladder. There is no wall thickening or pericholecystic fluid. There is no sonographic Xie sign. The common bile duct is normal in caliber measuring 3 mm. Right Kidney: The right kidney measures 11.2 cm in length. The right kidney is unremarkable, without evidence of masses, hydronephrosis, or calculi. Pancreas: The pancreas is obscured by bowel gas. Abdominal aorta and inferior vena cava: The visualized portions of the abdominal aorta and inferior vena cava are normal in caliber. There is no free fluid in the right upper quadrant. US/US abdomen limited IMPRESSION: 1. Hepatic steatosis. Multiple hepatic cysts measuring up to 4.5 x 2.7 x 5.3 cm. 2. Cholelithiasis. Electronically signed by: Say Camarillo MD 08/14/2024 09:32 AM EDT
--- OUTSIDE RECORDS SUMMARY | 2024-08-14 09:10 | XMS_ITS ---
Author Organization [facility] Address [address] [place] [phone] Care Team Providers Care Home Appliance Technician Name Role Phone Sandi ARREDONDO, Leon Primary Care Provider Mary Jo Saleem Jr, Ric Horne REASON FOR VISIT Patient presents today for a COLON SCREENING Encounters Encounter Location Date Provider Diagnosis [facility] [address] [place] [phone] 03/15/2023 Ric Saleem Jr Plan Of Treatment No Information Progress Notes * DESTINEE CADOB:1965 (59 yo F)Acc No.[id number]:03/15/2023 Progress Notes Patient:?DESTINEE [place] Provider:?Ric Saleem MD :1965???Age:57 Y???Sex:Female D ate:03/15/2023 Address:[address] [place] [address] , [place], [phone] Pcp:Leon Junior MD Subjective: * Chief Complaints: * ???1. Patient presents today for a COLON SCREENING. * Medical History:? Objective: * Vitals:? Assessment: Plan: * Treatment: * * The named appointment provid er may or may not be the originator of this progress note, and it is not deemed complete until electronically signed by the appointment provider. Sign off status: Pending * Provider:?Ric Saleem MD Date:?1 05/15/2022 Generated for Katerina arnold/Jose/eTransmitting on:?08/14/2024 09:10 AM EDT
--- OUTSIDE RECORDS SUMMARY | 2024-08-14 09:10 | XMS_ITS ---
Author Organization [facility] Address [address] [place] [phone] Care Team Providers Care Integrated Pest Management Technician Name Role Phone Sandi ARREDONDO, Leon Primary Care Provider Mary Jo Saleem Jr, Ric Horne REASON FOR VISIT cancelled appt Encounters Encounter Location Date Provider Diagnosis [facility] [address] [place] [phone] 03/12/2023 Ric Saleem Jr Plan Of Treatment No Information Progress Notes * DESTINEE CADOB:1965 (57 yo F)Acc No.[id number]:03/12/2023 Patient:?ELENI CAIDI :1965???Age:57 Y???Sex:Female Address:[address] [place] [address] , [place], [address] * true * Date:? Generated for Skylari clayton/Jose/eTransmitting on:?08/14/2024 09:10 AM EDT
--- OUTSIDE RECORDS SUMMARY | 2024-08-14 09:10 | XMS_ITS ---
Author Organization Leon Junior MD Address [address] [place], [place] [phone] Care Team Providers Care Lead Cytogenetic Technologist Name Role Phone Leon Junior Primary Care Provider Results Component Value Reference Range Notes Complete Blood Count Auto Di ff Reviewed date:06/13/2024 12:54:06 PM Interpretation: Performing Lab:[facility], [address] [place] [phone] Notes/Report: White Blood Count 6.8 4.8-10.8 X10*3/uL [...] t Reviewed date:06/13/2024 12:54:43 PM Interpretation: Performing Lab:[facility], [address] [place] [phone] Notes/Report: [id number] 0730 Urine, Clean Catch Color Urine Yellow Appearance Urine Clear PH 5.5 5.0-9.0 Glucose Urine UA Negative Negative mg/dL Urine Blood Negative Negative Specific [place] - Urine 1.020 1.005-1.025 Urine Protein Negative [...] Location Date Provider Diagnosis Leon Junior MD [address] [place] [address] [address] [place], [place] [phone] 06/13/2024 Leon Junior Blood tests for routine [...] TSH (THYROID STIMULATING HORMONE) 02/14/ 2025 Comprehensive [place]. Panel Fast Lipid Panel 06/13/2024 Vitamin D 25-OH Total 06/13/2024 Next Appt Details Provider Name:Leon Hodge ier, 06/18/2025 07:15:00 AM, [address], [address], [place], [place], [phone], Provider Name:Leon Hodge ier, 06/25/2025 02:30:00 PM, [address], [address], [place], [place], [phone], Progress Notes * Christine MARTINEZDOB:1965 (59 yo F)Acc No.[id number]:06/13/2024 Progress Note Patient:?Christine MARTINEZ Provider:?Leon Junior MD :1965???Age:58 Y???Sex:Female D ate:06/13/2024 Address:[address] [place], [place] [phone] Subjective: * Chief Complaints: * ???1. Fasting yearly labs. * Medical History:? Objective: * Vitals:? Assessment: * Assessment: 1.?Blood tests for routine g eneral physical examination - Z00.00 (Primary)???2.?Vitamin D deficiency - E55.9???3.?Nodule of right lobe of thyroid gland - E04.1??? Plan: * Treatment: 2.?Vitamin D deficiency?LAB: TSH (THYROID STIMULATING HORMONE) ?LAB: [facility] [place]. Panel Fast ?LAB: Lipid Panel ?LAB: Vitamin D 25-OH Total ?LAB: Complete Blood Count Auto Diff (Collection Date & Time - 06/13/2024 07:30 AM) ?LAB: UA ClnCatch+Micro w/rflx Cult (Collection Date & Time - 06/13/2024 07:30 AM) 3.?Nodule of right lobe of t hyroid gland?LAB: TSH (THYROID STIMULATING HORMONE) * Procedure Codes:?83637 VENIP UNCT, ROUTINE* * * The named appointment provid er may or may not be the originator of this progress note, and it is not deemed complete until electronically signed by the appointment provider. Sign off status: Pending * Provider:?Leon Junior MD Date:?0 06/13/2024 Generated for Katerina arnold/Jose/Radha on:?08/14/2024 09:10 AM EDT
--- OUTSIDE RECORDS SUMMARY | 2024-08-14 09:11 | XMS_ITS | Patient Health Record ---
Author Organization Leon Junior MD Address [address] [place], [place] [id number] Care Team Providers Care Environmental Health Aide Name Role Phone Leon Junior Primary Care Provider Allergies No Known Allergies Results Component Value Reference Range Notes Complete Blood Count Auto Di ff Reviewed date:06/13/2024 12:54:06 PM Interpretation: Performing Lab:[facility], [address] [place] [phone] Notes/Report: White Blood Count 6.8 4.8-10.8 X10*3/uL [...] t Reviewed date:06/13/2024 12:54:43 PM Interpretation: Performing Lab:[facility], [address] [place] [phone] Notes/Report: [id number] Urine, Clean Catch Color Urine Yellow Appearance Urine Clear PH 5.5 5.0-9.0 Glucose Urine UA Negative Negative mg/dL Urine Blood Negative Negative Specific [place] - Urine 1.020 1.005-1.025 Urine Protein Negative Neg-Trace mg/dL Urine Ketones Negative Negative mg/dL Nitrite Urine Negative Negative Leukocyte Esterase Urine Small (1+) Negative RBC Urine 0-2 0-2 /HPF WBC Urine 0-5 0-5 /HPF Squamous Epithelial Cell Urine 0-2 0-2 /HPF Bacteria Urine None Seen None Seen Hyaline Casts Urine 0-2 0-2 /LPF MAMMOGRAM DIGITAL BILATERAL SCREEN Reviewed date:11/12/2023 11:10:28 AM Interpretation:Negative Performing Lab: Notes/Report: Negative Hold Gold Reviewed date:06/13/2024 12:34:26 PM Interpretation: Performing Lab:[facility], [address] [place] [phone] Notes/Report: Hold Gold See Note Specimen held untested for 24 hours; Call to request Chemistry testing. Urine Culture Reviewed date:06/15/2024 02:43:32 PM Interpretation: Performing Lab:[address] [phone] Notes/Report: Urine Culture No growth. US thyroid Reviewed date:06/24/2024 08:18:19 AM Interpretation: Performing Lab: Notes/Report: [address] [place] [address] Ultrasound Report Signed Patient: Christine Martinez MR#: [id number] 9 : 1965 Acct:[id number] Age/Sex: 58 / F ADM Date: 06/17/24 Loc: HO.US Attending Dr: Leon Junior MD Ordering Physician: Leno Junior MD Date of Service: 06/17/24 Procedure(s): US thyroid Accession Number(s): [id number] cc: Leon Junior MD EXAMINATION: US THYROID CLINICAL INFORMATION: Thyroid nodule. COMPARISON: 06/19/2023, 06/21/2021, 06/01/2020. Fine-needle aspiration right mid pole thyroid nodule 07/20/2021 (nondiagnostic), and 06/02/2019 (benign). TECHNIQUE: Linear transducer grayscale and color Doppler examination with attention to the region of the thyroid. FINDINGS: SIZE: Measurements of the thyroid lobes and nodules are given in sagittal, anteroposterior and transverse dimensions respectively. Right Thyroid Lobe: 5.3 x 2.4 x 2.8 cm, volume 18.4 mL, enlarged. (Previously 16.6 mL) Parenchyma: The gland echotexture is homogeneous. Thyroid vascularity is normal. Left Thyroid Lobe: 5.2 x 1.4 x 1.3 cm, volume 5.0 mL. (Previously 6.0 mL). Parenchyma: The gland echotexture is homogeneous. Thyroid vascularity is normal. Isthmus: 0.3 cm in maximum AP dimension. Estimated total number of nodules greater than or equal to 1 cm: 1. Electric Wheelchair Repairer nodules are described as follows: 1. Location: Right mid pole. Size: 3.3 x 1.8 x 2.2 cm, volume 6.7 mL. (Previously 3.6 x 2.0 x 3.1, volume = 11.5 mL). Nodule characteristics: Composition: Solid (2). Echogenicity: Hypoechoic (2). Shape: Not taller than wide (0). Margins: Smooth (0). Echogenic Foci: None (0). ACR TI-RADS total points: 4 ACR TI-RADS category: 4 Significant change in size (>/= 20% in 2 dimensions and minimal increase of 2 mm or 50% or greater increase in volume): Yes, decrease. Change in features: No Change in ACR TI-RADS risk category: No. 2. Location: Left lower pole. Size: 0.7 x 0.6 x 0.6 cm, volume 0.12 mL. (Unchanged) Nodule characteristics: Composition: Solid (2). Echogenicity: Hypoechoic (2). Shape: Not taller than wide (0). Margins: Smooth (0). Echogenic Foci: None (0). ACR TI-RADS total points: 4 ACR TI-RADS category: 4 Significant change in size (>/= 20% in 2 dimensions and minimal increase of 2 mm or 50% or greater increase in volume): No. Change in features: No. Change in ACR TI-RADS risk category: No. NODES: No abnormal lymphadenopathy is seen in the tissue surrounding the thyroid gland. US/US thyroid IMPRESSION: 1. Dominant right midpole 3.3 cm TR category 4 nodule has significantly decreased in size over the past year, indicating a benign entity. This was biopsied with benign results 06/02/2019. 2. There is a 0.7 cm TR category 4 nodule in the left lower pole, unchanged. No follow-up recommended. 3. The surrounding thyroid parenchyma is normal. 4. The cervical lymph nodes imaged are normal. ACR TI-RADS RECOMMENDATION REFERENCE: Ultrasound-guided fine-needle aspiration, followup ultrasound, no further follow up. * TR1 (0 point) and TR2 (2 points): No FNA or follow up. * TR3 (3 points): FNA if more than or equal to 2.5 cm in maximum dimension, followup ultrasound in 1, 3 and 5 years if 1.5 to 2.4 cm in maximum dimension. * TR4 (4-6 points): FNA if more than or equal to 1.5 cm in maximum dimension, followup ultrasound in 1, 2, 3 and 5 years if 1 to 1.4 cm in maximum dimension. * TR5 (more than or equal to 7 points): FNA if more than or equal to 1 cm in maximum dimension, followup ultrasound every year for 5 years if 0.5 to 0.9 cm in maximum dimension. * TR3, TR4 or TR5 nodules that are below the size threshold for followup receive no follow up. Electronically signed by: Aman Avelar MD 06/23/2024 02:46 PM EST Dictated By: Aman Avelar MD Signed By: <Electronically signed by Aman Avelar MD in OV> 06/23/24 1446 DD/ 1600 TD/TT: 06/17/24 1630 Multifocal Lens Assembler: [place] [id number] Ultrasound Report Signed Patient: Emir Martinez MR#: [id number] 9 : 1965 Acct:[id number] Age/Sex: 58 / F ADM Date: 06/17/24 Loc: HO.US Attending Dr: Leon Junior MD Ordering Physician: Leon Junior MD Date of Service: 06/17/24 Procedure(s): US thyroid Accession Number(s): [id number] cc: Leon Junior MD EXAMINATION: US THYROID CLINICAL INFORMATION: Thyroid nodule. COMPARISON: 06/19/2023, 06/21/2021 , 06/01/2020. Fine-needle aspirati on right mid pole thyroid nodule 07/20/2021 (nondiagnostic), and 06/02/2019 (benign). TECHNIQUE: Linear transducer grayscale and color Doppler examination with attention to the reg ion of the thyroid. FINDINGS: SIZE: Measurements o f the thyroid lobes and nodules are given in sagittal, anteropost erior and transverse dimensions respectively. Right Thyroid Lobe: 5.3 x 2.4 x 2.8 cm, volume 18.4 mL, enlarged. (Previously 16.6 mL) Parenchyma: The glan d echotexture is homogeneous. Thyroid vascularity is normal. Left Thyroid Lobe: 5 .2 x 1.4 x 1.3 cm, volume 5.0 mL. (Previously 6.0 mL). Parenchyma: The glan d echotexture is homogeneous. Thyroid vascularity is normal. Isthmus: 0.3 cm in maximum AP dimension. Estimated total numb er of nodules greater than or equal to 1 cm: 1. Electric Wheelchair Repairer nodul es are described as follows: 1. Location: Right m id pole. Size: 3.3 x 1.8 x 2. 2 cm, volume 6.7 mL. (Previously 3.6 x 2.0 x 3.1, volume = 11.5 mL). Nodule characteristics: Composition: Solid (2). Echogenicity: Hypoec hoic (2). Shape: Not taller th an wide (0). Margins: Smooth (0). Echogenic Foci: None (0). ACR TI-RADS total po ints: 4 ACR TI-RADS category: 4 Significant change i n size (>/= 20% in 2 dimensions and minimal increase of 2 mm or 50% or greater increase in volume): Yes, decrease. Change in features: No Change in ACR TI-RAD S risk category: No. 2. Location: Left lo wer pole. Size: 0.7 x 0.6 x 0. 6 cm, volume 0.12 mL. (Unchanged) Nodule characteristics: Composition: Solid (2). Echogenicity: Hypoec hoic (2). Shape: Not taller th an wide (0). Margins: Smooth (0). Echogenic Foci: None (0). ACR TI-RADS total po ints: 4 ACR TI-RADS category: 4 Significant change i n size (>/= 20% in 2 dimensions and minimal increase of 2 mm or 50% or greater increase in volume): No. Change in features: No. Change in ACR TI-RAD S risk category: No. NODES: No abnormal lymphadenopathy is seen in the tissue surrounding the thyroid gland. U S/US thyroid IMPRESSION: 1. Dominant right mi dpole 3.3 cm TR category 4 nodule has significantly decreased in size ov er the past year, indicating a benign entity. This was biopsied with be nign results 06/02/2019. 2. There is a 0.7 cm TR category 4 nodule in the left lower pole, unchanged. No follow -up recommended. 3. The surrounding thyroid parenchyma is normal. 4. The cervical lymp h nodes imaged are normal. ACR TI-RADS RECOMMENDATION REFERENCE: Ultrasound-guided fine-needle aspiration, followup ultrasound, no further follow up. * TR1 (0 point) and TR2 (2 points): No FNA or follow up. * TR3 (3 points): FN A if more than or equal to 2.5 cm in maximum dimension, followup ultrasound in 1, 3 and 5 years if 1.5 to 2.4 cm in maximum dimension. * TR4 (4-6 points): FNA if more than or equal to 1.5 cm in maximum dimension, followup ultrasound in 1, 2, 3 and 5 years if 1 to 1.4 cm in maximum dimension. * TR5 (more than or equal to 7 points): FNA if more than or equal to 1 cm in maximum dimens ion, followup ultrasound every year for 5 years if 0.5 to 0.9 cm in max imum dimension. * TR3, TR4 or TR5 no dules that are below the size threshold for followup receive no follow up. Electronically laura d by: Aman Avelar MD 06/23/2024 02:46 PM [facility] Dictated By: Aman Avelar MD Signed By: <Electronically signed by Aman Avelar MD in OV> 06/23/24 1446 DD/ 1600 TD/TT: 06/17/24 1630 Multifocal Lens Assembler: Reason For Referral No Information Medications Medication SIG (Take, Route, Frequency, Duration) Notes Start Date End Date Status Ocuflox 0.3 % 1 drop into affected eye Ophthalmic Four times a day for 7 days 2021 Not-Takin g Hyoscyamine Sulfate ER 0.375 MG 1 tablet Orally once per day for 30 day(s) 01/20/2021 Not-Taking Vitamin D 2000 UNIT 1 tablet Orally Once a day Active Meclizine HCl 25 MG 1 tablet as needed Orally every 12 hrs for 7 days 02/16/2023 Not-Taking Ocuflox 0.3 % 1 drop into affected eye Ophthalmic Four times a day for 7 days 05/05/2019 Not-Takin g Ibuprofen 800 MG 1 tablet with food o r milk as needed Orally Three times a day for 30 days 05/06/2018 Not-Taking FLUoxetine HCl 20 MG 1 capsule in the morning Orally Once a day Active Immunizations Vaccine Route Administration Date Status Comme [...] Status Risk Notes Problem Diverticulitis of colon (937720030) Acute diverticulitis (K57.92) Active confirmed Problem 830852908 Thyroid nodule (E04.1) Active confirmed Problem 169010421 Irritable bowel syndrome with diarrhea (K58.0) Active confirmed Problem 97899173 Vitamin D deficiency (E55.9) Active confirmed Problem 971107979 Other ascites (R18.8) Active confirmed Problem 27992774 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 Problem 383258649 Mild intermitten t asthma without complication (J45.20) Active confirmed Problem 64659700 Dysthymia (F34.1) Active confirmed Problem 83227501 Liver cyst (K76.89) Active confirmed Problem 429612179 Nodule of right lobe of thyroid gland (E04.1) Active confirmed Vital Signs Blood pressure diastolic 80 mm Hg 06/23/2024 vignesh ght is up 10 pounds since 02-16-23 Height 67.5 in 06/23/2024 weight is up 10 pounds since 02-16-23 Blood pressure systolic 124 mm Hg 06/23/2024 weig ht is up 10 pounds since 02-16-23 Weight 182 lbs 06/23/2024 weight is up 10 pounds since 02-16-23 BMI 28.08 kg/m2 06/23/2024 weight is up 10 pounds since 02-16-23 Encounters Encounter Location Date Provider Diagnosis Leon Junior MD [address] [place] [phone] 06/13/2024 Leon Junior Blood tests for routine general physical examination Z00.00 ; Vitamin D deficiency E55.9 and Nodule of right lobe of thyroid gland E04.1 Leon Junior MD [address] [place] [phone] 06/23/2024 Leon Junior Encounter for screening for malignant neoplasm of colon Z12.11 ; Annual physical exam Z00.00 ; Encounter for screening for malignant neoplasm of rectum Z12.12 ; Thyroid nodule E04.1 ; Liver cyst K76.89 ; Vitamin D deficiency E55.9 and Depression screening Z13.31 Leon Junior MD [address] [place] [id number] 05/29/2024 Leon Junior MD [address] [place] [phone] 06/24/2024 Leon Junior Thyroid nodule E04.1 Assessments Encounter Date Diagnosis (ICD Code) Assessment Notes Treatment Notes Treatment Clinical Notes Section Notes 06/13/2024 Blood tests for routine general physical examination (ICD-10 - Z00.00) 06/23/2024 Encounter for screening for malignant neoplasm of colon (ICD-10 - Z12.11) [facility] Annual physical exam (ICD-10 - Z00.00) lab review and discussed with patient 06/24/2024 Thyroid nodule (ICD-10 - E04.1) 06/13/2024 Vitamin D deficiency (ICD-10 - E55.9) 06/23/2024 Encounter for screening for malignant neoplasm of rectum (ICD-10 - Z12.12) 06/13/2024 Nodule of right lobe of thyroid gland (ICD-10 - E04.1) 06/23/2024 Thyroid nodule (ICD-10 - E04.1) waiting for the us results 06/23/2024 Liver cyst (ICD-10 - K76.89) will repeat us of liver/ order faxed to [facility] dept 06/23/2024 Vitamin D deficiency (ICD-10 - E55.9) stavle, will continue current regiment 06/23/2024 Depression screening (ICD-10 - Z13.31) negtive screen Plan Of Treatment Pending Test Test Name Order Date TSH (THYROID STIMULATING HORMONE) 2024 CT ABD W&WO CONTRAST 01/20/2021 CT ABD & PELVIS WITH CONTRAST 06/08/2022 CT ABD & PELVIS WITH CONTRAST 11/30/2022 CT ABD & PELVIS WITH CONTRAST 01/21/2021 CT ABD & PELVIS WWO CONTRAST 01/21/2021 XR CHEST 2 VIEW PA & LAT 03/13/2022 BONE DENSITY DEXA 05/06/2018 US ABD 12/20/2020 US THYROID BIOPSY FNA GUIDE 05/22/2019 US THYROID BIOPSY FNA GUIDE 07/05/2021 COLOGUARD 06/23/2024 Comprehensive [place]. Panel Fast Lipid Panel 06/13/2024 Vitamin D 25-OH Total 06/13/2024 US abdomen limited 06/23/2024 US abdomen limited 06/08/2022 US thyroid 07/10/2023 US thyroid 06/24/2024 US thyroid 06/15/2023 Future Test Test Name Order Date US THYROID 06/05/2020 US THYROID 07/15/2021 Next Appt Details Provider Name:eLon Hodge ier, 06/18/2025 07:15:00 AM, [address] [place] [address], [place] [address], [place], [place], [phone], Provider Name:Leon Hodge ier, 06/25/2025 02:30:00 PM, [address] [place] [address], [place] [address], [place], [place], [phone], Insurance Providers Payer Name Payer Address Payer Phone Subscriber Number Group Number Insured Name Patient Relationship to Insured Coverage Start Date Coverage End Date [facility] [address] [facility] [address] [facility] [place] [phone] [id number] Christine Martinez Self - patient is the insured 8 Medical (General) History Medical History History ICD Code 04/09/17 - refused colonosco py and doesn''t want to be asked again; cologuard negative 06/04/18 Perimenopausal N95.1 cologard 06/21 negative
--- OUTSIDE RECORDS SUMMARY | 2024-08-14 09:11 | XMS_ITS ---
Author Organization Leon Junior MD Address [address] [place] [address] [address] [place] [phone] Care Team Providers Care Helper Metal Hanging Name Role Phone Leon Junior Primary Care Provider [phone] REASON FOR VISIT Thyroid US order Encounters Encounter Location Date Provider Diagnosis Leon Junior MD [address] [place] [address] [place] [id number] 06/24/2024 Leon Junior Thyroid nodule E04.1 Assessments Encounter Date Diagnosis (ICD Code) Assessment Notes Treatment Notes Treatment Clinical Notes Section Notes 06/24/2024 Thyroid nodule (ICD-10 - E04.1) Plan Of Treatment Pending Test Test Name Order Date US thyroid 06/24/2024 Next Appt Details Provider Name:Leon hernandez, 06/18/2025 07:15:00 AM, [address] [place] [address], [address] [place] [address], [phone], Provider Name:Leon hernandez, 06/25/2025 02:30:00 PM, [address] [place] [address], Suite [facility], [place], [place], [phone], Progress Notes * Christine MARTINEZDOB:1965 (58 yo F)Acc No.[id number]:06/24/2024 Patient:?Christine MARTINEZ :1965???Age:58 Y???Sex:Female Address:[address] [place] [address] , [place], [address] Subjective: * Chief Complaints: * ???Thyroid US order * Medical History:? * Surgical History:? * Hospitalization/Major Diagno stic Procedure:? * Medications:? Objective: * Vitals:? * Physical Examination:? Assessment: * Assessment: 1.?Thyroid nodule - E04.1??? Plan: * Treatment: * Procedure Codes:? * true * Date:? Generated for Katerina arnold/Jose/Radha on:?08/14/2024 09:11 AM EDT
--- OUTSIDE RECORDS SUMMARY | 2024-08-14 09:11 | XMS_ITS | Patient Health Record ---
Author Organization [facility] Address [address] [place] [address] Care Team Providers Care Sales Support Technician Name Role Phone Leon Junior MD Primary Care Provider Ric Boland Jr Unavailable [phone] Reason For Referral No Information Plan Of Treatment No Information Insurance Providers Payer Name Payer Address Payer Phone Subscriber Number Group Number Insured Name Patient Relationship to Insured Coverage Start Date Coverage End Date [facility] [address] [facility] [phone] [id number] [place] Self - patient is the insured
--- OUTSIDE RECORDS SUMMARY | 2024-08-14 09:11 | XMS_ITS | Encounter Summary ---
Author Organization [facility] Address [address] [place] [address] Care Team Providers Care Wafer Substrate Tester Name Role Phone Anam Hare MD Primary Care Provider [phone] Encounter Details Date Type Department Care Team (Latest Contact Info) Description 07/02/2024 Lab Requisition [facility] [address] [place] [phone] Anam Hare MD [address] [phone] Encounter for gynecological examination (general) (routine) without abnormal findings Social History Tobacco Use Types Packs/Day Years Used Date Smoking Tobacco: Never Assessed Comments Unknown Sex and Gender Information Value Date Recorded Sex Assigned at Female 07/02/2024 1:01 PM EST Legal Sex Female 4:18 PM EST Gender Identity Female 07/02/2024 1:01 PM EST Sexual Orientation Straight 07/02/2024 1: 01 PM EST documented as of this encounter Plan of Treatment Upcoming Encounters Date Type Department Care Team (Late st Contact Info) Description 11/06/2024 3:30 PM EDT Appointment [facility] [address] [place] [address] documented as of this encounter Procedures Procedure Name Priority Date/Time Associated Diagnosis Comments PAP SMEAR Routine 07/01/2024 12:00 AM EST Encounter for gynecological examination (general) (routine) without abnormal findings documented in this encounter Results * Pap smear (07/01/2024 12:00 AM EST) Interpretation Negative for intraepithelial lesion or malignancy 07/04/2024 10:46 AM [facility] General Categorization Negative 07/04/2024 10:46 AM [facility] Other Findings Atrophy 07/04/2024 10:46 AM [facility] Specimen Adequacy Satisfactory for evaluation 07/04/2024 10:46 AM [facility] Pap Methodology Liquid Based Pap Test 07/04/2024 10:46 AM [facility] Disclaimer The Pap test is a screening test which carries an inherent false negative rate. These test results should be correlated with the patient's clinical findings and history. This Pap test was processed using an automated screening system. Technical cytopathology services provided by [facility], at [address] [place] [id number] (CLIA # [id number]/Monica Murray MD, Systems Planner.) 07/04/2024 10:46 AM [facility] Console Pap Interpretation Reported 07/04/2024 10:46 AM [facility] Brushing/Spatula Cervix uteri structure / Unknown 07/01/2024 07/02/2024 6:24 AM EST us Anam Hare MD LAB CYTOLOGY ORDERABLES Final Result [facility] [address] [place] [address], documented in this encounter Visit Diagnoses Diagnosis Encounter for gynecological examination (general) (routine) without abnormal findings documented in this encounter Care Teams Wafer Substrate Tester Relationship Specialty Start Date End Date Anam Hare MD [address] [phone] PCP - General Obstetrics and Gynecology 07/02/24 documented as of this encounter
--- OUTSIDE RECORDS SUMMARY | 2024-08-14 09:11 | XMS_ITS ---
Author Organization Leon Junior MD Address [address] [place], [place] [id number] Care Team Providers Care Dna Analyst Name Role Phone Leon Junior Primary Care Provider [phone] Allergies No Known Allergies REASON FOR VISIT annual visit Medications Medication SIG (Take, Route, Frequency, Duration) Notes Start Date End Date Status Ocuflox 0.3 % 1 drop into affected eye Ophthalmic Four times a day for 7 days 2021 Not-Takin g Vitamin D 2000 UNIT 1 tablet Orally Once a day Active Meclizine HCl 25 MG 1 tablet as needed Orally every 12 hrs for 7 days 02/16/2023 Not-Taking FLUoxetine HCl 20 MG 1 capsule in the morning Orally Once a day Active Hyoscyamine Sulfate ER 0.375 MG 1 tablet Orally once per day for 30 day(s) 01/20/2021 Not-Taking Ocuflox 0.3 % 1 drop into affected eye Ophthalmic Four times a day for 7 days 05/05/2019 Not-Takin g Ibuprofen 800 MG 1 tablet with food o r milk as needed Orally Three times a day for 30 days 05/06/2018 Not-Taking Social History Tobacco Use: Social History Observation [...] Never (0 point) Points 0 Interpretation Negative Vital Signs Blood pressure systolic 124 mm Hg 06/23/19 25 Blood pressure diastolic 80 mm Hg 025 Height 67.5 in 06/23/2024 Weight 182 lbs 06/23/2024 BMI 28.08 kg/m2 06/23/2024 weight is up 10 pounds since 02-16-23 Encounters Encounter Location Date Provider Diagnosis Leon Junior MD [address] [place] [address] Drive [address] [place] [phone] 06/23/2024 Leon Junior Encounter for screening for malignant neoplasm of colon Z12.11 ; Annual physical exam Z00.00 ; Encounter for screening for malignant neoplasm of rectum Z12.12 ; Thyroid nodule E04.1 ; Liver cyst K76.89 ; Vitamin D deficiency E55.9 and Depression screening Z13.31 Assessments Encounter Date Diagnosis (ICD Code) Assessment Notes Treatment Notes Treatment Clinical Notes Section Notes 06/23/2024 Encounter for screening for malignant neoplasm of colon (ICD-10 - Z12.11) order faxed to [facility] 06/23/2024 Annual physical exam (ICD-10 - Z00.00) lab review and discussed with patient 06/23/2024 Encounter for screening for malignant neoplasm of rectum (ICD-10 - Z12.12) 06/23/2024 Thyroid nodule (ICD-10 - E04.1) waiting for the us results 06/23/2024 Liver cyst (ICD-10 - K76.89) will repeat us of liver/ order faxed to dept 06/23/2024 Vitamin D deficiency (ICD-10 - E55.9) stavle, will continue current regiment 06/23/2024 Depression screening (ICD-10 - Z13.31) negtive screen Plan Of Treatment Treatment Notes Assessment Notes Encounter for screening for malignant neoplasm of colon order faxed to [facility] Annual physical exam lab review and disc ussed with patient Thyroid nodule waiting for the us r esults Liver cyst will repeat us of li cinthya/ order faxed to dept Vitamin D deficiency stavle, will contin ue current regiment Depression screening negtive screen Pending Test Test Name Order Date [facility] 06/23/2024 US abdomen limited 06/23/2024 Next Appt Details Provider Name:Leon Hodge ier, 06/18/2025 07:15:00 AM, [address], [address], [place], [id number], Provider Name:Leon Hodge ier, 06/25/2025 02:30:00 PM, [address], [address], [place], [phone], Progress Notes * Christine MARTINEZDOB:1965 (58 yo F)Acc No.[id number]:06/23/2024 Progress Notes Patient:?Christine MARTINEZ Provider:?Leon Junior MD :1965???Age:58 Y???Sex:Female D ate:06/23/2024 Address:[address] [place], [place] [id number] Subjective: * Chief Complaints: * ???Annual visit * HPI: ???Depression Screening:?PHQ-9?Little interest or pleasure in doing things?Not at all,?Feeling down, depressed, or hopeless?Not at all,?Trouble falling or staying asleep, or sleeping too much?Not at all,?Feeling tired or having little energy?Not at all,?Poor appetite or overeating?Not at all,?Feeling bad about yourself or that you are a failure, or have let yourself or your family down?Not at all,?Trouble concentrating on things, such as reading the newspaper or watching television?Not at all,?Moving or speaking so slowly that other people could have noticed; or the opposite, being so fidgety or restless that you have been moving around a lot more than usual?Not at all,?Thoughts that you would be better off or of hurting yourself in some way?Not at all,?Total Score?0.?Communication Needs:?Communication Needs?Does the patient have a hearing impairment?No,?Does the patient have a vision impairment??Yes,?If yes, what is the vision impairment??Glasses,?Does the patient have a cognition impairment??No.?SDOH Questions:?SDOH Questions?In the past year have you been worried about losing housing??No,?In the past year have you or any family members you live with been unable to get any of the following when it was really needed? Check all that apply:?None.?Fall Risk:?History?Have you had any falls with injury in the past year??Yes tripped on the sidewlk no injury -2024,?Have you had two or more falls in the past year??No.?Symptom(s):? patient is a 58 yo female has some stomach issues at times, has some diverticulosis, here for annual visit with review of recent labs and follow up of chronic issues. * ROS:?General/Constitutional:?Patient denies?fatigue, headache.?Change in appetite?denies.?Chills?denies.?Fever?denies.?Ophthalmologic:?Blurred vision?denies.?Discharge?denies.?Pain?denies.?ENT:?Patient denies?decreased sense of smell, any loss of taste, sore throat.?Decreased hearing?denies.?Sore throat?denies.?Swollen glands?denies.?Endocrine:?Cold intolerance?denies.?Excessive thirst?denies.?Heat intolerance?denies.?Weight loss?denies.?Respiratory:?Cough?denies.?Shortness of breath at rest?denies.?Shortness of breath with exertion?denies.?Wheezing?denies.?Cardiovascular:?Chest pain at rest?denies.?Chest pain with exertion?denies.?Irregular heartbeat?denies.?Shortness of breath?denies.?Gastrointestinal:?Abdominal pain?denies.?Change in bowel habits?denies.?Diarrhea?denies.?Nausea?denies.?Rectal bleeding?denies.?Vomiting?denies .?Genitourinary:?Blood in urine?denies.?Difficulty urinating?denies.?Frequent urination?denies.?Urinary incontinence?Denies.?Musculoskeletal:?Patient denies?muscle aches.?Painful joints?denies.?Weakness?denies.?Peripheral Vascular:?Patient denies?red and blue toes.?Skin:?Dry skin?denies.?Itching?denies.?Denies?Mole(s),? changes in moles, new moles or any lesions of concern.?Denies?Photosensitivity.?Rash?denies.?Neurologic:?Dizziness?denies.?Fainting?denies.?Headache?denies.? * Medical History:? * Surgical History:? * Hospitalization/Major Diagno stic Procedure:? * Family History:?Father: dece ased 77 yrs.?Mother: 73 yrs, diagnosed with COPD.?1 son(s) . .? Father- Unknown mother- copd, Denies mental health/substance abuse family history, No pertinent family medical history, Denies mental health/substance abuse family history. * Social History:?Tobacco Use:?Tobacco Use/Smoking?Patient is a?nonsmoker,?Additional Findings: Tobacco Non-User?Current non-smoker, currently using no form of tobacco.?Drugs/Alcohol:?Alcohol Screen?Did you have a drink containing alcohol in the past year??Yes,?How often did you have a drink containing alcohol in the past year??Never (0 point),?How many drinks did you have on a typical day when you were drinking in the past year??1 or 2 drinks (0 point),?How often did you have 6 or more drinks on one occasion in the past year??Never (0 point),?Points?0,?Interpretation?Negative.?Miscellaneous:?Caffeine: yes, frequency:, 1-2 cups per day. Children: yes. Exercise: yes, walks 2 times a week x 3 miles. Home smoke detector use: yes. Housing: renting. Living with: alone. Occupation: weeks/months/years, works full-time. Pets: none. Travel outside of the [place]: no. * Medications:?TakingFLUoxetin e HCl 20 MG Capsule 1 capsule in the morning Orally Once a day Vitamin D 2000 UNIT Tablet 1 tablet Orally Once a day Taking FLUoxetine HCl 20 MG Capsule 1 capsule in the morning Orally Once a day Taking Vitamin D 2000 UNIT Tablet 1 tablet Orally Once a day Not-Taking/PRNMeclizine HCl 25 MG Tablet 1 tablet as needed Orally every 12 hrs Ocuflox 0.3 % Solution 1 drop into affected eye Ophthalmic Four times a day Hyoscyamine Sulfate ER 0.375 MG Tablet Extended Release 12 Hour 1 tablet Orally once per day Ocuflox 0.3 % Solution 1 drop into affected eye Ophthalmic Four times a day Ibuprofen 800 MG Tablet 1 tablet with food or milk as needed Orally Three times a day Not-Taking/PRN Meclizine HCl 25 MG Tablet 1 tablet as needed Orally every 12 hrs Not-Taking/PRN Ocuflox 0.3 % Solution 1 drop into affected eye Ophthalmic Four times a day Not-Taking/PRN Hyoscyamine Sulfate ER 0.375 MG Tablet Extended Release 12 Hour 1 tablet Orally once per day Not-Taking/PRN Ocuflox 0.3 % Solution 1 drop into affected eye Ophthalmic Four times a day Not-Taking/PRN Ibuprofen 800 MG Tablet 1 tablet with food or milk as needed Orally Three times a day DiscontinuedPaxlovid (300/100) 20 x 150 MG & 10 x 100MG Tablet Therapy Pack 3 pills orally twice a day Medication List reviewed and reconciled with the patientDiscontinued Paxlovid (300/100) 20 x 150 MG & 10 x 100MG Tablet Therapy Pack 3 pills orally twice a day Medication List reviewed and reconciled with the patient * Allergies:?N.K.D.A.yes[Aller gies Verified] Objective: * Vitals:?Ht: 67.5, Wt: 182, B UT:28.08, BP:124/80, Wt-k.55. weight is up 10 pounds since 02-16-23. * ???Past Orders: ???Lab:Complete Blood Count Auto Diff (Order Date - 06/13/2024) (Collection Date & Time - 06/13/2024 07:30 AM) ? Value Reference Range ?White Blood Count 6.8 4. 8-10.8 - X10*3/uL ?Red Blood Count 4.79 4.20 -5.50 - X10*6/uL ?Hemoglobin 14.0 12.0-16.0 - g/dl ?Hematocrit 44.2 37.0-47.0 - % ?Mean Corpuscular Volume 92.3 80.0-98.0 - fL ?Mean Corpuscular Hemoglobin 29.2 27.0-33.0 - pg ?Mean Corpuscular HGB Conc 31.7 31.0-35.0 - g/dl ?Red Cell Distribution Width 12.7 11.0-16.0 - % ?Platelet Count 312 160-4 00 - X10*3/uL ?Mean Platelet Volume 10.3 9.4-12.3 - fL ?Neutrophils Percent Auto 60.6 45-73 - % ?Imm Gran Pct Auto 0.3 0. 0-0.4 - % ?Lymphocytes Percent Auto 28.9 20-40 - % ?Monocytes Percent Auto 7.0 2-11 - % ?Eosinophils Percent Auto 2.2 0-4 - % ?Basophils Percent Auto 1.0 0-2 - % ?NRBC Pct Auto 0.0 0.0-0. 2 - /100WBC ?Neutrophils Absolute Auto 4.1 2.0-8.3 - x10*3/uL ?Imm Gran Abs Auto 0.02 0. 00-0.03 - X10*3/uL ?Lymphocytes Absolute Auto 2.0 1.2-4.9 - X10*3/uL ?Monocytes Absolute Auto 0.5 0.1-1.2 - X10*3/uL ?Eosinophils Absolute Auto 0.2 0.0-0.4 - X10*3/uL ?Basophils Absolute Auto 0.1 0.0-0.2 - X10*3/uL ?NRBC Abs Auto 0.000 0.0-0. 012 - X10*3/uL ???Lab:UA ClnCatch+Micro w/r flx Cult (Order Date - 06/13/2024) (Collection Date & Time - 06/13/2024 07:30 AM) ? Value Reference Range ?Color Urine Yellow - ?Appearance Urine Clear - ?PH 5.5 5.0-9.0 - ?Glucose Urine UA Negative Neg ative - mg/dL ?Urine Blood Negative Negative - ?Specific [place] - Urine 1.020 1.005-1.025 - ?Urine Protein Negative Neg-Tr milagros - mg/dL ?Urine Ketones Negative Negati ve - mg/dL ?Nitrite Urine Negative Negati ve - ?Leukocyte Esterase Urine Small (1+) A Negative - ?RBC Urine 0-2 0-2 - /HPF ?WBC Urine 0-5 0-5 - /HPF ?Squamous Epithelial Cell Urine 0-2 0-2 - /HPF ?Bacteria Urine None Seen None Seen - ?Hyaline Casts Urine 0-2 0-2 - /LPF ???Lab:Urine Culture (Order Date - 06/13/2024) (Collection Date & Time - 06/13/2024) ? Value Reference Range ?Urine Culture No growth. - * Examination: ???General Examination: ?GENERAL APPEARANCE:?well developed, well nourished, in no acute distress.?HEAD:?normocephalic, atraumatic.?EYES:?pupils equal, round, reactive to light and accommodation, sclera non-icteric.?EARS:?normal.?ORAL CAVITY:?mucosa moist.?THROAT:?clear.?NECK/THYROID:?neck supple, full range of motion, no cervical lymphadenopathy, no bruits.?SKIN:?warm and dry, no suspicious lesions.?HEART:?regular rate and rhythm, S1, S2 normal, no murmurs.?LUNGS:?clear to auscultation bilaterally.?BREASTS:?No mass, no lump.?ABDOMEN:?soft, nontender, nondistended, bowel sounds present, normal, no organomegaly , no masses palpable.?RECTAL EXAM:?done by ballpoint pens assembler.?FEMALE GENITOURINARY:?done by ballpoint pens assembler.?EXTREMITIES:?no clubbing, cyanosis, or edema.?NEUROLOGIC:?nonfocal, motor strength normal upper and lower extremities, sensory exam intact.? Assessment: * Assessment: 1.?Annual physical exam - Z0 0.00 (Primary)???2.?Encounter for screening for malignant neoplasm of colon - Z12.11???3.?Encounter for screening for malignant neoplasm of rectum - Z12.12???4.?Thyroid nodule - E04.1???5. Liver cyst - K76.89???6.?Vitamin D deficiency - E55.9???7.?Depression screening - Z13.31??? Plan: * Treatment: 2.?Encounter for screening f or malignant neoplasm of colon?LAB: [facility] Notes: order faxed to [facility] ?? 3.?Encounter for screening f or malignant neoplasm of rectum?LAB: [facility] 4.?Thyroid nodule?Imaging: US abdomen limited Notes: waiting for the us results?? 5.?Liver cyst?Imaging: US abdomen limited Notes: will repeat us of liver/ order faxed to [facility] ?? 6.?Vitamin D deficiency? Notes: stavle, will continue current regiment?? 7.?Depression screening? Notes: negtive screen?? * Procedure Codes:? * * Sign off status: Completed true * Provider:?Leon Junior MD Date:?0 06/23/2024 Generated for Katerina arnold/Jose/eTransmitting on:?08/14/2024 09:11 AM EDT History and Physical Notes * HPI (History of Present Illness) Category Sub-Category Detail Notes Category Not es Symptom(s) patient is a 58 yo female has some stomach issues at times, has some diverticulosis, here for annual visit with review of recent labs and follow up of chronic issues. Depression Screening PHQ-9 Little inte rest or pleasure in doing things: Not at all Feeling down, depressed, or hopeless: No t at all Trouble falling or staying asleep, or sl eeping too much: Not at all Feeling tired or having little energy: N ot at all Poor appetite or overeating: Not at all Feeling bad about yourself o r that you are a failure, or have let yourself or your family down: Not at all Trouble concentrating on thi ngs, such as reading the newspaper or watching television: Not at all Moving or speaking so slowly that other people could have noticed; or the opposite, being so fidgety or restless that you have been moving around a lot more than usual: Not at all Thoughts that you would be b alfredo off or of hurting yourself in some way: Not at all Total Score: 0 SDOH Questions SDOH Questions In the past year have you been worried about losing housing?: No In the past year have you or any family members you live with been unable to get any of the following when it was really needed? Check all that apply:: None Fall Risk History Have you had any falls with injury in the past year?: Yes tripped on the sidewlk no injury Have you had two or more falls in the ?: No Communication Needs Communication Needs Does the patient have a hearing impairment: No Does the patient have a vision impairmen t?: Yes ?If yes, what is the vision impairment?: Glasses Does the patient have a cognition impair ment?: No Examination Category Sub-Category Detail Notes Category Not es General Examination GENERAL APPEARANCE: well dev eloped, well nourished, in no acute distress HEAD: normocephalic, atrau matic EYES: pupils equal, round, reactive to light and accommodation, sclera non- icteric EARS: normal THROAT: clear NECK/THYROID: neck supple, full ra nge of motion, no cervical lymphadenopathy, no bruits HEART: regular rate and rhy thm, S1, S2 normal, no murmurs LUNGS: clear to auscultatio n bilaterally ABDOMEN: soft, nontender, non distended, bowel sounds present, normal, no organomegaly , no masses palpable NEUROLOGIC: nonfocal, motor stre ngth normal upper and lower extremities, sensory exam intact SKIN: warm and dry, no rhett picious lesions EXTREMITIES: no clubbing, cyanosi s, or edema BREASTS: No mass, no lump RECTAL EXAM: done by ballpoint pens assembler FEMALE GENITOURINARY: done by ballpoint pens assembler ORAL CAVITY: mucosa moist
--- OUTSIDE RECORDS SUMMARY | 2024-08-14 09:11 | XMS_ITS | Clinical Summary ---
Author Organization [facility] Address [address] [place] [address] Phone Care Team Providers Care Hooking Machine Operator Name Role Phone Anam Hare MD Primary Care Provider [phone] Encounters Date Type Department Care Team Description 07/02/2024 Lab Requisition [facility] - Main Lab [address] [place] [address] Anam Hare MD Encounter for gynecological examination (general) (routine) without abnormal findings from Last 3 Months Social History Tobacco Use Types Packs/Day Years Used Date Smoking Tobacco: Never Assessed Comments Unknown Sex and Gender Information Value Date Recorded Sex Assigned at Female 07/02/2024 1:01 PM EST Legal Sex Female 4:18 PM EST Gender Identity Female 07/02/2024 1:01 PM EST Sexual Orientation Straight 07/02/2024 1: 01 PM EST Plan of Treatment Upcoming Encounters Date Type Department Care Team (Late st Contact Info) Description 11/06/2024 3:30 PM EDT [facility]ointment [facility] at [address] [address] Health Maintenance Due Date Last Done Comments DTaP,Tdap,and Td Vaccines (1 - Tdap) 08/03/1983 Pneumococcal Vaccine: 50+ Years (1 of 1 - PCV) 2014 Zoster Vaccines (1 of 2) 2014 Colorectal Cancer Screening: Colonoscopy 03/29/2022 Depression Screening 03/29/2022 HIV Screening 03/29/2022 Hepatitis C Screening 03/29/2022 Social Influencers of Health Screening 03/29/2022 COVID-19 Vaccine (2023- season) 2023 Influenza Vaccine (Season Ended) 2024 Breast Cancer Screening 11/05/2025 11/06/19 24, 11/03/2022, 10/26/2021, Additional history exists Cervical Cancer Screening: Pap Smear 07/02/2027 07/01/2024 RSV Immunization Adult Patients (1 - 1-dose 75+ series) 08/03/2039 HIB Vaccines Aged Out No longer eligi ble based on patient's age to complete this topic HPV Vaccines Aged Out No longer eligi ble based on patient's age to complete this topic Hepatitis A Vaccines Aged Out No long er eligible based on patient's age to complete this topic Hepatitis B Vaccines Aged Out No long er eligible based on patient's age to complete this topic IPV Vaccines Aged Out No longer eligi ble based on patient's age to complete this topic MMR Vaccines Aged Out No longer eligi ble based on patient's age to complete this topic Meningococcal ACWY Vaccine Aged Out N o longer eligible based on patient's age to complete this topic Meningococcal B Vaccine Aged Out No l onger eligible based on patient's age to complete this topic Pneumococcal Vaccine: Pediatrics (0 to 5 Years) and At-Risk Patients (6 to 64 Years) Aged Out No longer eligible based on patient's age to complete this topic RSV Immunization Patients Under 20 months Aged Out No longer eligible based on patient's age to complete this topic Varicella Vaccines Aged Out No longer eligible based on patient's age to complete this topic Procedures Procedure Name Priority Date/Time Associated Diagnosis Comments PAP SMEAR Routine 07/01/2024 12:00 AM EST Encounter for gynecological examination (general) (routine) without abnormal findings QUINTON SCREENING DIGITAL Routine 11/06/2023 11:34 AM EDT Encounter for screening mammogram for malignant neoplasm of breast from Last 3 Months or Most Recently Relevant to Health Maintenance Results * Pap smear (07/01/2024 12:00 AM EST) Interpretation Negative for intraepithelial lesion or malignancy 07/04/2024 10:[address] [facility] General Categorization Negative 07/04/2024 10:[address] [facility] Other Findings Atrophy 07/04/2024 10:[address] [facility] Specimen Adequacy Satisfactory for evaluation 07/04/2024 10:[address] [facility] Pap Methodology Liquid Based Pap Test 07/04/2024 10:[address] [facility] Disclaimer The Pap test is a screening test which carries an inherent false negative rate. These test results should be correlated with the patient's clinical findings and history. This Pap test was processed using an automated screening system. Technical cytopathology services provided by [facility], at [address] [place] [address] (CLIA # [id number]/Monica Murray MD, Manufacturing Production Manager.) 07/04/2024 10:[address] [facility] Console Pap Interpretation Reported 07/04/2024 10:[address] [facility] Brushing/Spatula Cervix uteri structure / Unknown 07/01/2024 07/02/2024 6:24 AM EST us Anam Hare MD LAB CYTOLOGY ORDERABLES Final Result Performing Organization Address City/State/[facility] Co de Phone Number [facility] [address] [place] [address], * QUINTON SCREENING DIGITAL (11/06/2023 11:34 AM EDT) Anatomical Region Laterality Modality Mammography 11/06/2023 7:25 AM EDT Narrative 11/06/2023 11:34 AM EDT [facility] Diagnostic Imaging Department [address] [place] [address] Patient: ??CHRISTINE MARTINEZ ?/Age/Sex: 1965 - 58 - F Unit#: ??[id number] ? Location/Status: ??SPDIMAM/REG CLI ? Mnemonic/Ordering Site: ??DIGSC/SPMAM Ordering Physician: ??ANAM HARE MD [facility] Screening Digital - 11/06/23742 Report Status:Signed HISTORY: The patient is a 58-year-old female presenting for routine screening mammography. ??The patient has a family history of breast cancer involving her mother at age 55. FINDINGS: ??Full-field digital mammography of the breasts bilaterally consisting of tomosynthesis in MLO and CC projection is performed in the [employer] 2000-D unit. ??Computer aided detection utilizing the iCAD system was utilized. The breasts are again seen to be composed of a combination of fatty and fibroglandular elements (scattered areas of fibroglandular density, category B density as calculated with [employer] Volpara software), as also demonstrated on prior studies most recently 11/03/2022 most remotely 09/11/2016. ??There is no cluster of microcalcifications, mass, or area of architectural distortion. There is no skin thickening or nipple retraction. IMPRESSION: No mammographic evidence of malignancy. A negative mammogram in the presence of a clinically suspicious palpable abnormality does not preclude the possibility of malignancy or alter the indications for biopsy. BIRADS Code Class 1: ??Negative PQRI CPT II 3341F Code 89826, 16170 PQRI 225 CPT II 7025F Dictating Physician: ??MONAE ELAINE MD Electronically Signed by: ??MONAE ELAINE MD Dic Date/Time: ??11/06/23 1130 Sign date/Time: ??11/06/23 1134 Procedure Note Monae Elaine MD - 02/13/2024 [facility] Diagnostic Imaging Department [address] [place] [id number] Patient: LANNYCHRISTINE /Age/Sex: 1965 - 58 - F Unit#: [id number] Location/Status: [facility] CLI Mnemonic/Ordering Site: [facility] Ordering Physician: ANAM HARE MD [facility] Screening Digital - 11/06/23 - 742 Report Status:Signed HISTORY: The patient is a 58-year-old female presenting for routinescreening mammography. The patient has a family history of breast cancer involvingher mother at age 55. FINDINGS: Full-field digital mammography of the breasts bilaterallyconsisting of tomosynthesis in MLO and CC projection is performed in the [employer] 2000-D unit. Computer aided detection utilizing the iCAD system wasutilized. The breasts are again seen to be composed of a combination of fatty and fibroglandular elements (scattered areas of fibroglandular density,category B density as calculated with [employer] Volpara software), as also demonstratedon prior studies most recently 11/03/2022 most remotely 09/11/2016. There isno cluster of microcalcifications, mass, or area of architectural distortion.There is no skin thickening or nipple retraction. IMPRESSION: No mammographic evidence of malignancy. A negative mammogram in the presence of a clinically suspicious palpable abnormality does not preclude the possibility of malignancy or alter the indications for biopsy. BIRADS Code Class 1: Negative PQRI CPT II 3341F Code 55707, 50031 PQRI 225 CPT II 7025F Dictating Physician: MONAE ELAINE MD Electronically Signed by: MONAE ELAINE MD Dic Date/Time: 11/06/23 1130 Sign date/Time: 11/06/23 1134 Anam Hare MD IMG BI PROCEDURES Final Result from Last 3 Months or Most Recently Relevant to Health Maintenance Insurance [facility] [address] [place] [address] Care Teams Hooking Machine Operator Relationship Specialty Start Date End Date Anam Hare MD [address] [facility] [address] [place] [address] PCP - General Obstetrics and Gynecology 07/02/24
== END 2024-08-14 08:39 | disposition home or self-care (01) ==
LOC: HO.US 08:38
PROVIDERS: PCP Internal Medicine; Visit Provider Internal Medicine
DX: K76.89 Other specified diseases of liver (principal)
CPT/HCPCS: 76705

== ENCOUNTER → 2024-08-14 08:40 | Outpatient (BNV) | payer OTHER, SELFPAY | PROVIDERS: PCP Internal Medicine; Visit Provider Radiology Diagnostic Radiology | DX: K76.89 Other specified diseases of liver (principal); K76.0 Fatty (change of) liver, not elsewhere classified | CPT/HCPCS: 76705 ==